=== PATIENT | male | born 1960 | race Caucasian/White ===

== ENCOUNTER 2016-05-22 11:39 | Observation (INO) | payer OTHER ==
[~2016-05-22] VITALS: Ht 182.9 cm; Wt 82.8 kg
[2016-05-22] VITALS (12 sets, daily range): BP systolic 131–144; BP diastolic 78–91; PULSE 92–119; RESP 18–35; O2SAT 89–100
[~2016-05-22 11:39] MED LIST: BENA20TA PO; VENL75TA3 PO; ZIT250 PO
[2016-05-22] MEDS ORDERED: Albuterol-Ipratropium 3 mL Inhalation Solution ONE (11:52)
--- NOTE | 2016-05-22 12:01 | ED.REPORT ---
HPI-Dyspnea / Wheezing Date of Service May 22, 2016 ED Provider: Geovany Ho MD The patient is a 56 year old male with history of asthma who was brought to the emergency department by EMS for shortness of breath that began 2 days ago. His symptoms have worsened since onset. He complains of difficulty breathing and anxiety. He tried nebulizers at home with no improvement. Medics administered epinephrine, Solu-Medrol, DuoNeb, and albuterol with no relief. Nursing Notes Stated Complaint: ASTHMA Nursing Notes Reviewed: Yes Allergies: Coded Allergies: No Known Allergies (Unverified , 01/20/16) Scheduled Albuterol Sulfate (Ventolin HFA Inhaler) 200 Puff/18 Gm Inhaler 2 PUFFS INHALATION QID Atorvastatin Calcium (Atorvastatin Calcium) 80 Mg Tablet 80 MG PO HS Dextroamphetamine/Amphetamine ER (Adderall XR) 20 Mg Capsule 40 MG PO QAM Quetiapine Fumarate (Quetiapine Fumarate) 300 Mg Tablet 300 MG PO DAILY Venlafaxine ER (Venlafaxine ER) 37.5 Mg Cap.er.24h 37.5 MG PO DAILY Scheduled PRN Gabapentin (Gabapentin) 600 Mg Tablet 600 MG PO BID PRN PRN For Pain General Time Seen by MD: 11:54 Chief Complaint Shortness of breath Hx Obtained From: Patient, EMS Arrived By: Ambulance Sudden in Onset?: Yes Onset Occurred: 2 days ago Symptom Duration: Since onset Location: : None Severity: Current: No pain currently Severity: Maximum: No pain Recent Healthcare: No recent hospitalization Similar Sx Previous: Yes Past Medical History Past Medical History Reports: Asthma Past Surgical History None reported. Smoking History Unknown if Ever Smoker Social History Other Social History: Local resident Ambulatory Status Independent Review of Systems Respiratory: Reports: Shortness of breath Complete sys rev & neg: except as marked. Psychiatric: Reports: Anxiety Physical Exam Initial Vital Signs Vital Signs (First) Date Time Temp Pulse Resp B/P Pulse Ox O2 Delivery O2 Flow Rate FiO2 05/22/16 12:01 34.0 119 35 144/78 89 Room Air Initial VS: Reviewed Head / Eyes: Atraumatic, Normocephalic, PERRL ENT: Mucous membranes moist, Conjunctiva normal, No scleral icterus Abdomen / GI: Soft, Non-tender, No guarding, No rebound, No distention Lymphatic: No lymphadenopathy Extremities: Vascular intact, Neuro intact, No swelling, No tenderness Skin: Warm, Dry, No cyanosis Neurologic: Alert, Oriented, Nonfocal Psychiatric: Mood/affect normal, Behavior normal, Normal thought content General/Constitutional: Awake, Alert Behavior: Positive: Anxious Neck: Atraumatic, Supple, No meningismus, Full range of motion, No swelling, Non-tender, No masses Diminished Breath Sounds: Positive: Decreased bilateral Wheezing / Retractions: Positive: Wheeze insp/exp diffuse Cardiovascular: Heart rate NL, Regular rhythm, Heart sounds NL, No gallop, No murmurs, No rubs, Peripheral circulation NL Interpretation & Diagnostics Lab Results Interpretation Result Diagram: 05/22/16 1355 05/22/16 1355 Test 05/22/16 13:55 White Blood Count 14.2th/mm3 (3.8-10.1) Red Blood Count 5.38mil/mm3 (4.40-5.80) Hemoglobin 15.8g/dL (13.8-17.2) Hematocrit 47.6% (41.0-50.0) Mean Corpuscular Volume 88.5fL (81-100) Mean Corpuscular Hemoglobin 29.4pg (27.0-35.0) Mean Corpuscular Hemoglobin Concent 33.2% (32.0-37.0) Red Cell Distribution Width 14.5% (12.3-15.4) Platelet Count 228bil/L (150-400) Neutrophils (%) (Auto) 93.1% (40-74) Lymphocytes (%) (Auto) 4.1% (14-46) Monocytes (%) (Auto) 2.1% (4-12) Eosinophils (%) (Auto) 0.3% (0-5) Basophils (%) (Auto) 0.1% (0-3) Sodium Level 140mEq/L (134-144) Potassium Level 4.6mEq/L (3.5-5.2) Chloride Level 102mEq/L (97-108) Carbon Dioxide Level 22mmol/L (18-29) Blood Urea Nitrogen 24mg/dL (6-24) Creatinine 1.10mg/dL (0.76-1.27) Estimat Glomerular Filtration Rate 74mL/min (>59) Glucose Level 164mg/dL (60-99) Calcium Level 8.7mg/dL (8.5-10.1) Magnesium Level 3.0mg/dL (1.6-2.6) Total Bilirubin 0.3mg/dL (0.0-1.2) Aspartate Amino Transf (AST/SGOT) 25U/L (0-50) Alanine Aminotransferase (ALT/SGPT) 22U/L (0-44) Alkaline Phosphatase 83U/L (25-150) Troponin T < 0.010ug/L (0.0-0.011) Pro-B-Type Natriuretic Peptide 28.93pg/mL (0-210) Total Protein 6.7g/dL (6.4-8.4) Albumin 4.3g/dL (3.4-5.0) Hold Quevedo Top Tube Received (Received) ECG Interpretation ECG Interpretation: Sinus tachycardia with a rate of 111 Abnormal R wave progression, early transition Inferior infarct, old Time: 12:31 Interpreted by: ED physician X-Ray Chest Interpretation Chest Xray Interpretation: IMPRESSION: No acute cardiopulmonary disease. Dictated by: Gayatri Denny M.D. on 05/22/2016 at 12:28 Interpretation / Wet Read by: Interpret - Radiologist Re-Eval/Medical Decision Med Decision/Clinical Course Upon arrival this gentleman is in extreme distress with sweat pouring off of him tripoding and unable to speak more than one word at a time. He had received epinephrine 0.3 mg of 1-1000 subcutaneous and Solu-Medrol and albuterol prior to arrival and he stated that he was feeling no better. We added on 10 additional milligrams of albuterol along with magnesium IV 2 g. And 1 mg of lorazepam. After a couple of hours he was much improved but still quite coarse breath sounds. Source of Hx: Old records, EMS Re-Evaluation/Progress #1: Time of Eval: 12:00 Re-Evaluation/Progress Note: The patient is feeling better. Re-Evaluation/Progress #2: Time of Eval: 12:08 Re-Evaluation/Progress Note: The patient is doing much better. He is sitting back in bed comfortably. Re-Evaluation/Progress #3: Time of Eval: 12:17 Re-Evaluation/Progress Note: The patient is stable. Re-Evaluation/Progress #4: Time of Eval: 14:07 Re-Evaluation/Progress Note: Rechecked the patient. He feels that if he is discharged home he will be right back. Will contact hospitalist for admission. Consultation : Referral / Consult Name: Alex Rivas MD Consulted With: Hospitalist Requested Call at: 14:08 Call Returned at: 14:13 Sieve Repairer: Will see patient, Agrees with eval, Agrees with plan, Accepts admit Counseled Regarding: Diagnosis, Lab results, Need for admission Discharge & Departure Impression: Primary Impression: Asthma exacerbation Disposition: ADMITTED TO HOSPITAL Discharge Condition All VS Reviewed: Yes Condition: Stable Referrals: Tyrel Munguia MD (PCP) Crit Care Except Billable Proc Time Spent: 30-74 minutes Services Performed: Patient management by me, Time spent at bedside, Reviewing test results, Reviewing imaging, Discussing patient care, Documentation in record Scribe Attestation Portions of this note were transcribed by Conhcita Aldridge. I, Dr. Ho personally performed the history, physical exam and medical decision-making; I reviewed and confirmed the accuracy of the information in the transcribed note. Signed by: Jonas Shaikh, 05/22/2016 at 1420. copies to: Tyrel Munguia MD, Kirk H MD May 22, 2016 12:01 Conchita Aldridge May 22, 2016 12:05
[2016-05-22] MEDS ORDERED: Albuterol 2.5 mg/3 mL Inhalation Solution NEB ONE (12:05)
[2016-05-22] MEDS ORDERED: Magnesium Sulf 2 Gm/50mL Water 2 GM in IV Premix 1 EACH IV ONE (12:05)
--- NOTE | 2016-05-22 12:30 | DRSVH ---
PROCEDURE: X-RAY CHEST ONE VIEW, PORTABLE ([id number]) INDICATIONS: wheezing TECHNIQUE: One view of the chest was acquired. COMPARISON: [facility], CR, XR CHEST 1VW (PORTABLE), 01/20/2016, 14:20. FINDINGS: Surgical changes and devices: None. Lungs and pleura: No pleural effusions or pneumothorax. Lungs are clear. Mediastinum: Mediastinal contours appear normal. Heart size is normal. Bones and chest wall: No suspicious bony lesions. Overlying soft tissues appear unremarkable. Old anterior first rib fracture or large osteochondral osteophytes are noted. IMPRESSION: No acute cardiopulmonary disease. Dictated by: Gayatri Denny M.D. on 05/22/2016 at 12:28 Approved by: Gayatri Denny M.D. on 05/22/2016 at 12:29
[2016-05-22] MEDS ORDERED: ALBU18HF INHALATION (13:33)
[2016-05-22] MEDS ORDERED: VENL-57 PO (13:33)
[2016-05-22] MEDS ORDERED: AMPH20CA5 PO (13:33)
[2016-05-22] MEDS ORDERED: QUET300T44 PO (13:33)
[2016-05-22] MEDS ORDERED: GABA600T2 PO (13:35)
[2016-05-22] MEDS ORDERED: ATOR80TA77 PO (13:35)
[2016-05-22 14:12] LABS: BASOPHILS % (AUTO) 0.1 % (0-3); EOSINOPHILS % (AUTO) 0.3 % (0-5); MONOCYTES % (AUTO) 2.1 % (4-12); Mean Corpuscular Hemoglobin 29.4 pg (27.0-35.0); Mean Corpuscular Volume 88.5 fL (81-100); NEUTROPHILS % (AUTO) 93.1 % (40-74); Platelet Count 228 bil/L (150-400)
[2016-05-22 14:43] LABS: TROPONIN T < 0.010 ug/L (0.0-0.011)
[2016-05-22] MEDS ORDERED: Alum-Mag Hydrox-Simeth 30 mL Suspension PO PRN (14:45)
[2016-05-22] MEDS: MethylprednisoLONE Sodium Succinate 62.5 mg/mL 2 mL Inj IVPUSH SCH ×2 (14:45→21:17)
[2016-05-22] MEDS ORDERED: HYDROcodone-APAP 5-325 mg Tablet PO PRN (14:45)
[2016-05-22] MEDS ORDERED: Polyethylene Glycol (PEG) 17 Gm Powder PO PRN (14:45)
[2016-05-22] MEDS ORDERED: Albuterol 2.5 mg/3 mL Inhalation Solution NEB SCH ×2 (14:55→16:30)
--- NOTE | 2016-05-22 15:39 | PCM.HPMED ---
Subjective Date of Service May 22, 2016 Primary Provider: Admitting Physician: Alex Rivas MD Primary Care Physician: Tyrel Munguia MD Attending Physician: Alex Rivas MD Chief Complaint: Shortness of Breath History of Present Illness: Marc is a 56-year-old male smoker with a history of asthma who was brought to the ED by EMS for shortness of breath that began approximately 2-3 days ago. He notes that he began getting increasingly short of breath about 3 days ago, so he used his albuterol as frequently as possible. He reports that cold air and cigarettes smoke triggers his asthma. He reports that despite the frequent usage of his inhaler, he was still very short of breath, especially with exertion. As a result he laid in bed for 2 days, waiting for his shortness of breath to improve. He did notice a cough that was not productive, but denies any fevers, chest pain, rash, or URI symptoms. He denies any recent illnesses and denies any recent oral steroid usage. He also has anxiety at baseline, so when his breathing continued to worsen, this exacerbated his anxiety, making it further difficult to breathe. Prior to this episode patient reports that he uses his albuterol inhaler at least 4-5 times daily to help with his shortness of breath. On route to the ED medics did administer epinephrine, Solu-Medrol, DuoNeb, and albuterol, but had little relief. In the ED he was noted to be tachycardic, tachypneic, with an O2 saturation of 89% on room air. He received 10 mg of albuterol nebulized, 2 duonebs, 2 g of mag sulfate, and 1 mg of Ativan. His tachypnea did improve and his O2 saturations were 92% on 3-4 L of oxygen by nasal cannula. He had a benign chest x-ray, and an EKG that showed abnormal early R-wave progression which was unchanged from an EKG year ago Review of Systems: 12 point review of systems negative except as stated in history of present illness Allergies Coded Allergies: No Known Allergies (Unverified , 01/20/16) Home Medications Albuterol inhaler Venlafaxine Statin Adderall PMH Persistent Asthma Hyperlipidemia Anxiety Reports ADHD Surgical History Reports bilateral shoulder surgeries Right knee surgery Family History reports mother's side of family had "bad hearts" Report father's side of family had diabetes Social History Hx Alcohol Use: No Hx Substance Use: No Hx Tobacco Use: Yes Smoking Status: Current Every Day Smoker (about half pack per day since 21 years old) Living Arrangement: with Friends/Roommate Exam Vital Signs Vital Sign - Last Date Time Temp Pulse Resp B/P Pulse Ox O2 Delivery O2 Flow Rate FiO2 05/22/16 12:01 34.0 119 35 144/78 89 Room Air Exam General: Well-developed male who appears in moderate respiratory distress while supine, speaking short sentences HEENT:NC/AT, PERRLA, sclera anicteric, oropharynx nonerythematous, mucosa moist and pink Neck: Soft, nontender, trachea midline, no JVD noted was supine CV: Regular rate and rhythm with soft systolic murmur noted, peripheral pulses intact and equal, mild capillary refill delay Respiratory: Diffuse bilateral respiratory and expiratory wheezing and rhonchi and crackles. Very coarse breath sounds, moderately increased respiratory effort, mild scalene and scm muscle usage Abdomen: Soft, nontender, obese, normoactive bowel sounds present MSK: Muscle strength grossly intact and equal, no tender joints Neuro: Alert and oriented 3, no focal weakness, patellar DTRs 2+ and equal Skin: Warm, dry, intact Extremities: No clubbing, cyanosis, edema noted Psychiatric: Appropriate mood and affect Lab and Diagnostics Result Diagram: 05/22/16 1355 05/22/16 1355 X-Rays, CTs and MRIs Portable chest x-ray: No acute cardiopulmonary disease noted Assessment & Plan 56-year-old male smoker with a history of asthma who was brought to the ED by EMS for shortness of breath that began approximately 2-3 days ago. #Acute exacerbation of asthma, present on admission This is likely a severe exacerbation of patient's persistent asthma. This is likely triggered by his tobacco usage. Besides the elevated white count on admission, he does not exhibit any other infectious signs or symptoms. Will obtain a pro-calcitonin to further evaluate. Perhaps a 2 view chest x-ray when his respiratory status is improved would be beneficial. Since patient continues to be in respiratory distress and hypoxic despite aggressive ED management, will plan to treat aggressively as inpatient with: IV Solu-Medrol 125 mg IV Q6, albuterol inhalers Q2h, DuoNeb inhalers Q4h, and Montelukast 10mg PO HS. Will plan to titrate off IV Solu-Medrol and change to oral prednisone tomorrow if respiratory status improves. We will continue to monitor respiratory status closely. #Hypoxic respiratory failure, POA Patient was saturating in the high 80s upon admission, which did not improve much after treatment. Currently requiring 3-4 L of oxygen by NC to maintain saturations above 92% We will plan to obtain an ABG for further evaluation of respiratory status Continue to keep saturations above 92% We will place on telemetry for CV monitoring Further management as above #Anxiety disorder,POA We will continue patient's home Effexor #Hyperlipidemia, POA We will continue patient's home statin #History of ADHD, POA We will continue patient's home Adderall #Tobacco dependence, POA Encouraged patient to quit for his health Nicotine patch when necessary Tylenol prn fever/pain Zofran prn nausea CODE STATUS: Full resuscitation Admission status: Patient is admitted to observation status due to risk of adverse events and his medical complexity Pain Evaluation: Adequate Pain Control VTE Prophylaxis: Sub-Q Heparin (Unfractionated) Resuscitation Status: CPR: Attempt Resuscitation Attending Statement The patient was seen and examined together with Dr. Nathan on 05/22/2016 and I agree with the history, exam and plan as outlined in the note above. Rigo Nathan DO May 22, 2016 15:39 Alex Rivas MD May 23, 2016 09:16
[2016-05-22] MEDS: Heparin 5,000 Unit/mL Inj SUBQ SCH (16:30)
--- NOTE | 2016-05-22 16:37 | ABG ---
DateTimeAnalyzed 16:33:00 -_ pH ____7.416 - 7.350 7.450 pCO2 ___35.2__ -mmHg 35.0 45.0 pO2 ___58.8__ -mmHg 70.0 100 HCO3- ___22.2__ -mmol/L 22.0 26.0 ABE ___-1.2__ -mmol/L -2.0 2.0 tHb ___15.8__ -g/dL 12.0 18.0 O2Hb ___88.9__ -% 95.0 COHb ____1.2__ -% 1.5 MetHb ____0.8__ -% 0.4 1.5 sO2 ___90.7__ -% 25.0 FIO2 ___21.0__ -% Drawn By lw - Date/Time Notified____ 16:37:00 -_ Oxygen Device 1 RA - Notified By lw - Notified Whom ___Dr. Nathan - B 753 -mmHg tO2 ___19.7__ -Vol% Joey test _Positive -
[2016-05-22] MEDS: Albuterol-Ipratropium 3 mL Inhalation Solution NEB SCH ×3 (16:55→23:36)
--- NOTE | 2016-05-22 17:31 | NUR ---
Admission Admit to room 3011 from ER via dara. RA sats 89%, placed on 2L O2 via NC with sats mid 90s%. Very SOB and audible wheezes with ambulating to BR and forgetful of lines requiring SBA. Fluids infusing NS@100 from ER. Urine stephen, using urinal. Reporting pain 2/10 and declining interventions at this point as well as nicotine patch. Admission assessments and med rec completed in ER. Pt oriented to room and call light. RT notified or arrival to unit.
[2016-05-22] MEDS: Albuterol 2.5 mg/3 mL Inhalation Solution NEB SCH ×2 (18:30→21:46)
[2016-05-23] VITALS (18 sets, daily range): BP systolic 119–148; BP diastolic 69–88; PULSE 95–120; RESP 18–28; O2SAT 87–98
[2016-05-23] MEDS: Heparin 5,000 Unit/mL Inj SUBQ SCH ×3 (00:30→15:52)
[2016-05-23] MEDS: Albuterol 2.5 mg/3 mL Inhalation Solution NEB SCH ×3 (02:05→11:53)
[2016-05-23] MEDS: MethylprednisoLONE Sodium Succinate 62.5 mg/mL 2 mL Inj IVPUSH SCH ×3 (03:40→15:51)
[2016-05-23] MEDS: Albuterol-Ipratropium 3 mL Inhalation Solution NEB SCH ×6 (04:09→23:43)
[2016-05-23 06:22] LABS: BASOPHILS % (AUTO) 0.1 % (0-3); EOSINOPHILS % (AUTO) 0 % (0-5); MONOCYTES % (AUTO) 1.5 % (4-12); Mean Corpuscular Volume 87.9 fL (81-100); NEUTROPHILS % (AUTO) 93.4 % (40-74); Platelet Count 242 bil/L (150-400)
[2016-05-23 07:09] LABS: Magnesium 2.1 mg/dL (1.6-2.6)
[2016-05-23] MEDS: Venlafaxine XR 37.5 mg ER24 Capsule PO SCH (08:50)
[2016-05-23] MEDS: Amphetamines (Mixed) XR 10 mg ER24 Capsule PO SCH (09:47)
--- NOTE | 2016-05-23 10:52 | NUR ---
Social Work: Screening Data: Pt is a 56 y/o male admitted for asthma exacerbated. Pt's PCP is Dr Munguia, pt's insurance is [employer]. EMR reviewed. Readmit score is 3. No d/c planning needs anticipated at this time. TOOTH CUTTER PINION will continue to follow if needs arise. Assessment: Pt who is independent at baseline. Plan: Pt will d/c home via POV when medically stable. No d/c planning needs anticipated at this time. TOOTH CUTTER PINION will continue to follow if needs arise. ENMANUEL Moise
[2016-05-23] MEDS ORDERED: Albuterol 2.5 mg/3 mL Inhalation Solution NEB PRN (14:30)
--- NOTE | 2016-05-23 14:39 | PCM.PNMED ---
Subjective Date of Service May 23, 2016 Subjective Marc Levin is a 56-year-old male smoker with a history of asthma who was brought to the ED by EMS for shortness of breath that began approximately 2-3 days ago. Now under treatment for asthma exacerbation. Hospital day #2. Overnight: No acute events. Today: The patient is still feeling short of breath with exertion. While at rest he states his breathing is fairly normal but any exertion including sitting up. He has not been compliant with wearing his O2 mask. He denies any cough, fever, chills, nausea, vomiting or diarrhea. The remainder of the review of systems is negative except as noted above. Exam Vital Signs Vital Sign - Last Date Time Temp Pulse Resp B/P Pulse Ox O2 Delivery O2 Flow Rate FiO2 05/23/16 13:05 36.6 118 18 131/79 92 Room Air 05/23/16 10:17 3.00 Intake and Output 05/22/16 05/22/16 05/23/16 Cumulative From/Thru 15:00 23:00 07:00 05/22/16 12:01 - 05/23/16 06:25 Intake Total 50 ml 375 ml 425 ml Output Total 400 ml 400 ml Balance 50 ml -25 ml 25 ml Intake Oral 375 ml 375 ml IV Total 50 ml 50 ml Output Urine Total 400 ml 400 ml # Bowel Movements 0 0 Exam General: Well-developed male who appears in no acute respiratory distress. Laying comfortably in bed. HEENT:NC/AT, PERRLA, sclera anicteric, oropharynx nonerythematous, mucosa moist and pink Neck: Soft, nontender, trachea midline, no JVD noted was supine CV: Regular rate and rhythm with soft systolic murmur noted, peripheral pulses intact and equal, mild capillary refill delay Respiratory: Diffuse bilateral respiratory and expiratory wheezing and rhonchi and crackles. Very coarse breath sounds, moderately increased respiratory effort, mild scalene and scm muscle usage Abdomen: Soft, nontender, obese, normoactive bowel sounds present MSK: Muscle strength grossly intact and equal, no tender joints Neuro: Alert and oriented 3, no focal weakness, patellar DTRs 2+ and equal Skin: Warm, dry, intact Extremities: No clubbing, cyanosis, edema noted Psychiatric: Appropriate mood and affect IVs and Medications Medications Reviewed: Medications were reviewed in detail Lab and Diagnostics Result Diagram: 05/23/16 0540 05/23/16 0540 X-Rays, CTs and MRIs X-RAY CHEST ONE VIEW, PORTABLE IMPRESSION: No acute cardiopulmonary disease. Dictated by: Gayatri Denny M.D. on 05/22/2016 at 12:28 Additional Diagnostics DateTimeAnalyzed 16:33:00 -_ pH ____7.416 - 7.350 7.450 pCO2 ___35.2__ -mmHg 35.0 45.0 pO2 ___58.8__ -mmHg 70.0 100 HCO3- ___22.2__ -mmol/L 22.0 26.0 Assessment & Plan Marc Levin is a 56-year-old male smoker with a history of asthma who was brought to the ED by EMS for shortness of breath that began approximately 2-3 days ago. Now under treatment for asthma exacerbation. Hospital day #2. 1. Acute exacerbation of asthma, present on admission -This is likely a severe exacerbation of patient's persistent asthma. This is likely triggered by his tobacco usage. -Besides the elevated white count on admission, he does not exhibit any other infectious signs or symptoms. Will obtain a pro-calcitonin to further evaluate. Perhaps a 2 view chest x-ray when his respiratory status is improved would be beneficial. -Since patient continues to be in respiratory distress and hypoxic despite aggressive ED management, will plan to treat aggressively as inpatient with: -IV Solu-Medrol 125 mg IV Q6 titrated down to 60 mg IV Q8 -Albuterol inhalers Q2h PRN, DuoNeb inhalers Q4H scheduled while awake, and Montelukast 10mg PO HS. -We will continue to monitor respiratory status closely. 2. Hypoxic respiratory failure, present on admission -Patient was saturating in the high 80s upon admission, which did not improve much after treatment. -ABG showing paO2 of 58.8 -Currently requiring 3 L of oxygen by Oxymask to maintain saturations above 92% -Continue to keep saturations above 92% -We will place on telemetry for CV monitoring -Further management as above 3. Anxiety disorder, present on admission -We will continue patient's home Effexor 4. Hyperlipidemia, present on admission -We will continue patient's home statin 5. History of ADHD, present on admission -We will continue patient's home Adderall 6. Tobacco dependence, present on admission -Encouraged patient to quit for his health -Nicotine patch when necessary Tylenol prn fever/pain Zofran prn nausea CODE STATUS: Full resuscitation Dispo: Anticipate patient will be in the hospital for a couple more days as his asthma exacerbation resolves. VTE Prophylaxis: Sub-Q Heparin (Unfractionated) VTE Mechanical Devices: Intermittant Pneumatic CD Resuscitation Status: CPR: Attempt Resuscitation Attending Statement The patient was seen and examined together with Dr. Duarte on 05/23/2016 and I agree with the history, exam and plan as outlined in the note above. Macy Duarte DO May 23, 2016 13:22 Alex Rivas MD May 24, 2016 11:33
--- NOTE | 2016-05-23 17:03 | NUR ---
Telemetry: Notified by cdl service technician patient HR elevated to 120s. Has been 100-110s. Patient laying in bed, receiving nebulizer treatment at that time. Asymptomatic. Blue team Sr Resident notified. No new orders received. On reassessment, patient HR decreased back to 100-110s per cdl service technician.
[2016-05-24] MEDS: Heparin 5,000 Unit/mL Inj SUBQ SCH ×2 (00:30→08:30)
[2016-05-24] MEDS: MethylprednisoLONE Sodium Succinate 62.5 mg/mL 2 mL Inj IVPUSH SCH (00:33)
[2016-05-24 01:55] VITALS: BP 134/87; PULSE 102; RESP 22; O2SAT 93
[2016-05-24 04:58] VITALS: PULSE 120; RESP 20; O2SAT 94
[2016-05-24] MEDS: Albuterol-Ipratropium 3 mL Inhalation Solution NEB SCH ×2 (04:58→09:26)
[2016-05-24 06:33] LABS: BASOPHILS % (AUTO) 0 % (0-3); EOSINOPHILS % (AUTO) 0 % (0-5); MONOCYTES % (AUTO) 2.7 % (4-12); Mean Corpuscular Hemoglobin 29.9 pg (27.0-35.0); Mean Corpuscular Volume 87.9 fL (81-100); Platelet Count 308 bil/L (150-400)
[2016-05-24 06:43] VITALS: BP 131/85; PULSE 97; RESP 22; O2SAT 98
[2016-05-24 08:00] VITALS: PULSE 108
[2016-05-24] MEDS ORDERED: MethylprednisoLONE Sodium Succinate 40 mg/mL Inj IVPUSH SCH (08:30)
[2016-05-24] MEDS: Amphetamines (Mixed) XR 10 mg ER24 Capsule PO SCH (08:30)
[2016-05-24] MEDS: Venlafaxine XR 37.5 mg ER24 Capsule PO SCH (08:37)
[2016-05-24 09:15] VITALS: PULSE 120; RESP 20; O2SAT 94
--- NOTE | 2016-05-24 09:43 | DRSVH ---
PROCEDURE: X-RAY CHEST, TWO VIEWS ([id number]) INDICATIONS: SHORTNESS OF BREATH TECHNIQUE: 2 views of the chest were acquired. COMPARISON: None. FINDINGS: Surgical changes and devices: None. Lungs and pleura: No pleural effusions or pneumothorax. Lungs are clear. Mediastinum: Mediastinal contours are normal. Heart size is normal. Bones and chest wall: No suspicious bony abnormalities. Soft tissues appear unremarkable. IMPRESSION: No acute cardiopulmonary disease. Dictated by: [facility] Interpreted: Davida Loaiza MD on 05/24/2016 at 9:42 Transcribed by: KAYLEE on 05/24/2016 at 9:43 Approved by: Davida Loaiza MD, PhD on 05/24/2016 at 17:07
[2016-05-24] MEDS ORDERED: ALBU18HF INHALATION (10:21)
[2016-05-24] MEDS ORDERED: PRE20 PO (10:21)
--- NOTE | 2016-05-24 10:26 | PCM.DIMED ---
Rigo Nathan DO 05/24/16 1026: Discharge Instructions Date of Service May 24, 2016 Dates of Hospitalization May 22, 2016 at 15:21 Discharge Diagnosis Discharge Diagnosis Acute exacerbation of asthma, improved Anxiety disorder, present on admission Hyperlipidemia, present on admission History of ADHD Tobacco dependence, Medication Instructions Continue taking your medications as prescribed. Please stop smoking Diet No restrictions Activity No restrictions Call your provider Fever or Chills, Shortness of breath, Bleeding, Chest pain, Vomitting, Excessive diarrhea, Weakness (unilateral) Patient Instructions Please follow up with your primary care doctor tomorrow Follow-up Provider: Tyrel Munguia MD Follow-up with PCP in: 1 week Alex Rivas MD 05/24/16 1133: Rigo Nathan DO May 24, 2016 10:26 Alex Rivas MD May 24, 2016 11:33
--- NOTE | 2016-05-24 10:34 | NUR ---
Social Work: Informed pt left AMA TERMINAL OPERATIONS SUPERVISOR informed pt left AMA. Pt had no d/c planning needs. ENMANUEL Moise
--- NOTE | 2016-05-24 10:36 | NUR ---
AMA Pt insisting to go home this morning, up ambulating in the hallway without any difficulty. Pt signed AMA form and discharged home with all belongings.
--- NOTE | 2016-05-24 12:08 | NUR ---
Belongings Before leaving, pt reported that he had brought bottles of medications with him and requested them back. No meds found in drawer or pharmacy. Pt left AMA. After pt left, belongings bag found in closet containing pill bottles and clothing. Called pt and left voicemail.
--- NOTE | 2016-05-24 16:52 | PCM.DC.MED ---
Discharge Summary Date of Service May 24, 2016 Dates of Hospitalization Date of Hospital Admission May 22, 2016 at 15:21 Date of Discharge: May 24, 2016 Providers: Admitting Physician: Alex Rivas MD Primary Care Physician: Tyrel Munguia MD Attending Physician: Alex Rivas MD Diagnosis at Time of Discharge Diagnosis at Time of Discharge Left against medical advice Acute exacerbation of asthma, improved Anxiety disorder, present on admission Hyperlipidemia, present on admission History of ADHD Tobacco dependence, Procedures XRay, CTs & MRIs X-RAY CHEST ONE VIEW, PORTABLE IMPRESSION: No acute cardiopulmonary disease. Dictated by: Gayatri Denny M.D. on 05/22/2016 at 12:28 Other Diagnostics DateTimeAnalyzed 16:33:00 -_ pH ____7.416 - 7.350 7.450 pCO2 ___35.2__ -mmHg 35.0 45.0 pO2 ___58.8__ -mmHg 70.0 100 HCO3- ___22.2__ -mmol/L 22.0 26.0 Brief History Marc is a 56-year-old male smoker with a history of asthma who was brought to the ED by EMS for shortness of breath that began approximately 2-3 days ago. He notes that he began getting increasingly short of breath about 3 days ago, so he used his albuterol as frequently as possible. He reports that cold air and cigarettes smoke triggers his asthma. He reports that despite the frequent usage of his inhaler, he was still very short of breath, especially with exertion. As a result he laid in bed for 2 days, waiting for his shortness of breath to improve. He did notice a cough that was not productive, but denies any fevers, chest pain, rash, or URI symptoms. He denies any recent illnesses and denies any recent oral steroid usage. He also has anxiety at baseline, so when his breathing continued to worsen, this exacerbated his anxiety, making it further difficult to breathe. Prior to this episode patient reports that he uses his albuterol inhaler at least 4-5 times daily to help with his shortness of breath. On route to the ED medics did administer epinephrine, Solu-Medrol, DuoNeb, and albuterol, but had little relief. In the ED he was noted to be tachycardic, tachypneic, with an O2 saturation of 89% on room air. He received 10 mg of albuterol nebulized, 2 duonebs, 2 g of mag sulfate, and 1 mg of Ativan. His tachypnea did improve and his O2 saturations were 92% on 3-4 L of oxygen by nasal cannula. He had a benign chest x-ray, and an EKG that showed abnormal early R-wave progression which was unchanged from an EKG year ago Hospital Course Marc Levin is a 56-year-old male smoker with a history of asthma who was brought to the ED by EMS for shortness of breath that began approximately 2-3 days ago. Now under treatment for asthma exacerbation. Hospital day #2. Left against medical advice. Was given script for Prednisone 40mg PO x 5 days and Albuterol HFA inhaler. Also recommended to stop smoking. 1. Acute exacerbation of asthma, present on admission -This is likely a severe exacerbation of patient's persistent asthma. This is likely triggered by his tobacco usage. -Besides the elevated white count on admission, he does not exhibit any other infectious signs or symptoms. Will obtain a pro-calcitonin to further evaluate. Perhaps a 2 view chest x-ray when his respiratory status is improved would be beneficial. -Since patient continues to be in respiratory distress and hypoxic despite aggressive ED management, will plan to treat aggressively as inpatient with: -IV Solu-Medrol 125 mg IV Q6 titrated down to 60 mg IV Q8 -Albuterol inhalers Q2h PRN, DuoNeb inhalers Q4H scheduled while awake, and Montelukast 10mg PO HS. -We will continue to monitor respiratory status closely. 2. Hypoxic respiratory failure, present on admission -Patient was saturating in the high 80s upon admission, which did not improve much after treatment. -ABG showing paO2 of 58.8 -Currently requiring 3 L of oxygen by Oxymask to maintain saturations above 92% -Continue to keep saturations above 92% -We will place on telemetry for CV monitoring -Further management as above 3. Anxiety disorder, present on admission -We will continue patient's home Effexor 4. Hyperlipidemia, present on admission -We will continue patient's home statin 5. History of ADHD, present on admission -We will continue patient's home Adderall 6. Tobacco dependence, present on admission -Encouraged patient to quit for his health -Nicotine patch when necessary Tylenol prn fever/pain Zofran prn nausea CODE STATUS: Full resuscitation Dispo: Anticipate patient will be in the hospital for a couple more days as his asthma exacerbation resolves. Exam Vital Signs (Last) Date Time Temp Pulse Resp B/P Pulse Ox O2 Delivery O2 Flow Rate FiO2 05/24/16 09:15 120 20 94 Room Air 05/24/16 06:43 36.5 131/85 8.00 Exam Refused exam due to leaving AMA Test 05/22/16 13:55 05/23/16 05:40 05/24/16 06:02 Total Bilirubin 0.3mg/dL (0.0-1.2) Aspartate Amino Transf (AST/SGOT) 25U/L (0-50) Alanine Aminotransferase (ALT/SGPT) 22U/L (0-44) Alkaline Phosphatase 83U/L (25-150) Troponin T < 0.010ug/L (0.0-0.011) Pro-B-Type Natriuretic Peptide 28.93pg/mL (0-210) Total Protein 6.7g/dL (6.4-8.4) Albumin 4.3g/dL (3.4-5.0) Hold Quevedo Top Tube Received (Received) Magnesium Level 2.1mg/dL (1.6-2.6) White Blood Count 26.2th/mm3 (3.8-10.1) Red Blood Count 5.36mil/mm3 (4.40-5.80) Hemoglobin 16.0g/dL (13.8-17.2) Hematocrit 47.1% (41.0-50.0) Mean Corpuscular Volume 87.9fL (81-100) Mean Corpuscular Hemoglobin 29.9pg (27.0-35.0) Mean Corpuscular Hemoglobin Concent 34.0% (32.0-37.0) Red Cell Distribution Width 14.6% (12.3-15.4) Platelet Count 308bil/L (150-400) Neutrophils (%) (Auto) 93.0% (40-74) Lymphocytes (%) (Auto) 3.9% (14-46) Monocytes (%) (Auto) 2.7% (4-12) Eosinophils (%) (Auto) 0% (0-5) Basophils (%) (Auto) 0% (0-3) Sodium Level 140mEq/L (134-144) Potassium Level 4.6mEq/L (3.5-5.2) Chloride Level 102mEq/L (97-108) Carbon Dioxide Level 19mmol/L (18-29) Blood Urea Nitrogen 23mg/dL (6-24) Creatinine 0.85mg/dL (0.76-1.27) Estimat Glomerular Filtration Rate 99mL/min (>59) Glucose Level 151mg/dL (60-99) Calcium Level 10.1mg/dL (8.5-10.1) Procalcitonin 0.08ng/mL (0.00-0.08) Discharge Medications Discharge Medications Albuterol Sulfate (Ventolin HFA Inhaler) 200 Puff/18 Gm Inhaler 2 PUFFS INHALATION QID Prescribed by: LOUIS NATHAN DO Atorvastatin Calcium (Atorvastatin Calcium) 80 Mg Tablet 80 MG PO HS (Reported) Dextroamphetamine/Amphetamine ER (Adderall XR) 20 Mg Capsule 40 MG PO QAM ( Reported) Prednisone (PredniSONE) 20 Mg Tablet 40 MG PO DAILY Prescribed by: LOUIS NATHAN DO Quetiapine Fumarate (Quetiapine Fumarate) 300 Mg Tablet 300 MG PO DAILY ( Reported) Venlafaxine ER (Venlafaxine ER) 37.5 Mg Cap.er.24h 37.5 MG PO DAILY (Reported) As needed Gabapentin (Gabapentin) 600 Mg Tablet 600 MG PO BID PRN PRN For Pain (Reported) Additional med instructions Continue taking your medications as prescribed. Please stop smoking Followup Plan Disposition: Left AMA Discharge Diet: No restrictions Discharge Activity: No restrictions Patient Instructions Please follow up with your primary care doctor tomorrow Follow-up Provider: Tyrel Munguia MD Follow-up with PCP in: 1 week Attending Statement The patient was seen and examined together with Dr. Nathan on 05/24/2016 and I agree with the history, exam and plan as outlined in the note above. copies to: Tyrel Munguia MD, Hong D DO May 24, 2016 16:51 Alex Rivas MD May 25, 2016 11:47
== END 2016-05-24 10:30 | disposition left against medical advice (07) ==
LOC: EDBD 11:39 → SED 11:39 → EDUNIT# 11:39 → MPC 15:21
PROVIDERS: ADMIT Family Medicine; ATTEND Family Medicine
DX: J45.901 Unspecified asthma with (acute) exacerbation (principal); J80 Acute respiratory distress syndrome; F41.9 Anxiety disorder, unspecified; E78.5 Hyperlipidemia, unspecified; F90.9 Attention-deficit hyperactivity disorder, unspecified type; F17.210 Nicotine dependence, cigarettes, uncomplicated; Z53.21 Procedure and treatment not carried out due to patient leaving prior to being seen by health care provider
CPT/HCPCS: 36415; 71010; 71020; 80048; 80053; 83735; 83880; 84145; 84484; 85025; 93005; 94640; 94664; 96365; 96375; 96376; 99291; G0378; J2060; J2920; J2930; J7613; J7620

== ENCOUNTER 2016-05-25 15:43 | Inpatient (IN) | payer OTHER ==
[~2016-05-25] VITALS: Ht 182.9 cm; Wt 82.2 kg
[~2016-05-25 15:43] MED LIST changes: +ALBU18HF INHALATION; +AMPH20CA5 PO; +ATOR80TA77 PO; -BENA20TA PO; +GABA600T2 PO; +PRE20 PO; +QUET300T44 PO; +VENL-57 PO; -VENL75TA3 PO; -ZIT250 PO
[2016-05-25 15:50] VITALS: BP 158/87; PULSE 82; RESP 20; O2SAT 93
--- NOTE | 2016-05-25 15:53 | ED.REPORT ---
HPI-Dyspnea / Wheezing Date of Service May 25, 2016 ED Provider: Dr. Gamez Pt is a 56 y/o male w/ a hx of asthma, anxiety, everyday smoking, presenting to the ED c/o SOB onset today. The patient was recently admitted May 22- and left AMA for a severe asthma exacerbation which was thought to be triggered by smoking. At that time his O2 sats were in the high 80s and did not rise above 92 % with 3L supplemental oxygen and nebulizer treatments. He states he left AMA because he "felt weird" and "stunk" because he was not given a shower. He was diagnosed with asthma 5 years ago and has never required intubation. He has been taking prednisone for 3 days and using home inhalers as often as possible without relief. Pt denies fever, chills, change in smokers cough, N/V/D, abdominal pain. Nursing Notes Stated Complaint: DIFFICULTY BREATHING Chief Complaint: Respiratory Complaints Nursing Notes Reviewed: Yes Allergies: Coded Allergies: No Known Allergies (Unverified , 01/20/16) Scheduled Albuterol Sulfate (Ventolin HFA Inhaler) 200 Puff/18 Gm Inhaler 2 PUFFS INHALATION QID Atorvastatin Calcium (Atorvastatin Calcium) 80 Mg Tablet 80 MG PO HS Dextroamphetamine/Amphetamine ER (Adderall XR) 20 Mg Capsule 40 MG PO QAM Prednisone (PredniSONE) 20 Mg Tablet 40 MG PO DAILY Quetiapine Fumarate (Quetiapine Fumarate) 300 Mg Tablet 300 MG PO DAILY Venlafaxine ER (Venlafaxine ER) 37.5 Mg Cap.er.24h 37.5 MG PO DAILY Scheduled PRN Gabapentin (Gabapentin) 600 Mg Tablet 600 MG PO BID PRN PRN For Pain General Time Seen by MD: 15:53 Chief Complaint Shortness of breath Hx Obtained From: Patient Arrived By: Walk-in Sudden in Onset?: No Onset Occurred: 1 - 4 hours ago Symptom Duration: Since onset Severity: Current: No pain currently Severity: Maximum: No pain Recent Healthcare: Recent doctor visit, Recent hospitalization, Recent testing , Previous diagnosis, Prior workup Similar Sx Previous: Yes Past Medical History Past Medical History Asthma Depression Anxiety Hyperlipidemia Past Surgical History None reported. Smoking History Current Every Day Smoker Social History Drug Use: THC Other Social History: Local resident Ambulatory Status Independent Review of Systems Constitutional: Denies: Chills, Fever Respiratory: Reports: Dyspnea on exertion, Shortness of breath, Wheezing, Denies: Non-productive cough Cardiovascular: Denies: Chest pain, Dyspnea on exertion Complete sys rev & neg: except as marked. GI: Denies: Abdominal pain, Diarrhea, Nausea, Vomiting Physical Exam Initial Vital Signs Vital Signs (First) Date Time Temp Pulse Resp B/P Pulse Ox O2 Delivery O2 Flow Rate FiO2 05/25/16 15:50 36.6 82 20 158/87 93 Room Air 05/25/16 16:08 1.5 Initial VS: Reviewed, Vital signs abnormal Head / Eyes: Atraumatic, Normocephalic, PERRL ENT: Mucous membranes moist, Conjunctiva normal, No scleral icterus Abdomen / GI: Soft, Non-tender, No distention Extremities: Vascular intact, Neuro intact, No swelling, No tenderness Skin: Warm, Dry, No cyanosis Neurologic: Alert, Oriented, Nonfocal Psychiatric: Mood/affect normal, Behavior normal, Normal thought content General/Constitutional: Awake, Alert, Cooperative, Not toxic appearing Distress / Hydration: Positive: Distress moderate Neck: Atraumatic, Supple, No meningismus, Full range of motion Respiratory / Chest: Atraumatic, No rales, No rhonchi, No stridor, No chest tenderness, No chest wall deformity, No crepitus Resp Distress / Stridor: Positive: Resp distress moderate Inspiratory and expiratory wheezes 5 word sentences Increased work of breathing Cardiovascular: Heart rate NL, Regular rhythm, Heart sounds NL, No gallop, No murmurs, No rubs, Cap refill not delayed, Peripheral circulation NL Interpretation & Diagnostics Lab Results Interpretation Result Diagram: 05/25/16 1610 05/25/16 1610 Test 05/25/16 16:10 White Blood Count 16.8th/mm3 (3.8-10.1) Red Blood Count 5.40mil/mm3 (4.40-5.80) Hemoglobin 16.1g/dL (13.8-17.2) Hematocrit 47.4% (41.0-50.0) Mean Corpuscular Volume 87.8fL (81-100) Mean Corpuscular Hemoglobin 29.8pg (27.0-35.0) Mean Corpuscular Hemoglobin Concent 34.0% (32.0-37.0) Red Cell Distribution Width 14.4% (12.3-15.4) Platelet Count 298bil/L (150-400) Neutrophils (%) (Auto) 86.9% (40-74) Lymphocytes (%) (Auto) 7.4% (14-46) Monocytes (%) (Auto) 5.1% (4-12) Eosinophils (%) (Auto) 0.1% (0-5) Basophils (%) (Auto) 0.1% (0-3) Sodium Level 136mEq/L (134-144) Potassium Level 4.7mEq/L (3.5-5.2) Chloride Level 99mEq/L (97-108) Carbon Dioxide Level 21mmol/L (18-29) Blood Urea Nitrogen 23mg/dL (6-24) Creatinine 0.81mg/dL (0.76-1.27) Estimat Glomerular Filtration Rate 105mL/min (>59) Glucose Level 126mg/dL (60-99) Calcium Level 9.7mg/dL (8.5-10.1) Total Bilirubin 0.5mg/dL (0.0-1.2) Aspartate Amino Transf (AST/SGOT) 43U/L (0-50) Alanine Aminotransferase (ALT/SGPT) 33U/L (0-44) Alkaline Phosphatase 92U/L (25-150) Troponin T < 0.010ug/L (0.0-0.011) Pro-B-Type Natriuretic Peptide 225.4pg/mL (0-210) Total Protein 7.6g/dL (6.4-8.4) Albumin 4.4g/dL (3.4-5.0) Procalcitonin 0.04ng/mL (0.00-0.08) Hold Quevedo Top Tube Received (Received) ECG Interpretation Time: 16:23 Interpreted by: ED physician Normal ECG Interpretation: Normal ECG w/ rate of... (67), Normal rate, Normal sinus rhythm, No acute ischemic changes, Normal QRS, Normal axis, Normal intervals, Adequate tracing X-Ray Chest Interpretation Chest Xray Interpretation: IMPRESSION: No acute cardiopulmonary disease. Dictated by: Jay Martinez M.D. on 05/25/2016 at 17:28 Approved by: Jay Martinez M.D. on 05/25/2016 at 17:30 View: Portable, 1 view Interpretation / Wet Read by: Interpret - Radiologist Re-Eval/Medical Decision Med Decision/Clinical Course 56-year-old male with a history of asthma diagnosed 5 years ago, never intubated previously, presents after leaving [facility] during an admission for asthma exacerbation. He has been taking steroids for the past 3 days and continues to be very short of breath. He does not have a nebulizer at home but has been using his inhaler almost continuously without improvement. He cannot walk to the bathroom without becoming extremely short of breath. He left the hospital because he wanted to go home and take a shower. Despite not being hypoxic the patient does have significant chest tightness and increased work of breathing. He improved somewhat after magnesium, Solu-Medrol, and albuterol/DuoNeb treatment. He will be admitted for further treatment and evaluation. Respiratory swab PCR ordered Source of Hx: Old records Re-Evaluation/Progress #1: Time of Eval: 16:13 Re-Evaluation/Progress Note: Pt rechecked. Discussed likely possibility of admission. Will recheck. Re-Evaluation/Progress #2: Time of Eval: 17:39 Re-Evaluation/Progress Note: Pt rechecked. O2 sat 93% on RA. He is feeling better but remains short of breath. No increased work of breathing or respiratory distress. He is experiencing expiratory wheezing. Discussed discharge vs admission. He states that he does not want to be discharged because he will just end up back in the ED 2 hours later with severe SOB. He will be admitted. Consultation : Referral / Consult Name: Wu العراقي MD Consulted With: Hospitalist Call Returned at: 17:51 Organizational Effectiveness Director: Will see patient, Agrees with eval, Agrees with plan, Accepts admit Counseled Regarding: Diagnosis, Lab results, Need for admission Discharge & Departure Impression: Primary Impression: Asthma exacerbation Additional Impressions: Leukocytosis Leukocytosis type: unspecified Qualified Code: D72.829 - Elevated white blood cell count, unspecified Hyperglycemia Disposition: ADMITTED TO HOSPITAL Discharge Condition All VS Reviewed: Yes Condition: Stable Referrals: Tyrel Munguia MD (PCP) Geovany Ho MD (Family) Scribe Attestation Portions of this note were transcribed by Eduardo Sanchez. IDr. Gamez personally performed the history, physical exam and medical decision-making; I reviewed and confirmed the accuracy of the information in the transcribed note. Signed by Jonas Worthy, 05/25/16 - [id number] copies to: Geovany Ho MD; Tyrle Munguia MD, Gary R DO May 25, 2016 15:53 EDUARDO SANCHEZ May 25, 2016 15:59
[2016-05-25] MEDS ORDERED: Albuterol-Ipratropium 3 mL Inhalation Solution NEB ONE (15:55)
[2016-05-25] MEDS ORDERED: Magnesium Sulf 2 Gm/50mL Water 2 GM in IV Premix 1 EACH IV ONE (15:55)
[2016-05-25] MEDS ORDERED: Albuterol 2.5 mg/3 mL Inhalation Solution NEB ONE (15:55)
[2016-05-25] MEDS ORDERED: MethylprednisoLONE Sodium Succinate 62.5 mg/mL 2 mL Inj IVPUSH ONE (15:55)
[2016-05-25 16:08] VITALS: PULSE 72; RESP 16; O2SAT 95
[2016-05-25 16:49] LABS: BASOPHILS % (AUTO) 0.1 % (0-3); EOSINOPHILS % (AUTO) 0.1 % (0-5); MONOCYTES % (AUTO) 5.1 % (4-12); Mean Corpuscular Hemoglobin 29.8 pg (27.0-35.0); Mean Corpuscular Volume 87.8 fL (81-100); NEUTROPHILS % (AUTO) 86.9 % (40-74); Platelet Count 298 bil/L (150-400)
[2016-05-25 17:26] LABS: TROPONIN T < 0.010 ug/L (0.0-0.011)
--- NOTE | 2016-05-25 17:32 | DRSVH ---
PROCEDURE: X-RAY CHEST ONE VIEW, PORTABLE ([id number]) INDICATIONS: shortness of breath COMPARISON: [facility], CR, XR CHEST 2VW, 05/24/2016, 7:46. FINDINGS: Surgical changes and devices: None. Lungs and pleura: No pleural effusions or pneumothorax. Lungs are clear. Mediastinum: Mediastinal contours are normal. Heart size is normal. Bones and chest wall: No suspicious bony abnormalities. Soft tissues appear unremarkable. IMPRESSION: No acute cardiopulmonary disease. Dictated by: Jay Martinez M.D. on 05/25/2016 at 17:28 Approved by: Jay Martinez M.D. on 05/25/2016 at 17:30
[2016-05-25 18:14] VITALS: BP 157/86; PULSE 88; RESP 18; O2SAT 96
--- NOTE | 2016-05-25 18:36 | PCM.HPMED ---
Subjective Date of Service May 25, 2016 Primary Provider: Admitting Physician: Primary Care Physician: Tyrel Munguia MD Attending Physician: Chief Complaint: Wheezing short of breath HISTORY was OBTAINED FROM PATIENT / MEDITECH NOTES History of present illness 56-year-old maleleft AMA yesterday after asthma exacerbation admission, discharged with prednisone 40/albuterol inhaler, does not have nebulizers at home, did take prednisone, but could not walk to the bathroom without shortness of breath last night nor today therefore returned to ER. Patient was admitted 05/22/2016 with a three-day history of shortness of breath hypoxia despite using his albuterol inhaler, WBC 26, Concurrent anxiety history patient was administered montelukast in addition to steroid/nebs/O2.. Asthma is triggered by cigarettes and cold air, more frequent w/ taking up smoking again after brother's and cold weather. Associated productive cough clear phelgm per patient. no sore throat No fevers. In the ER inspiratory expiratory wheezes per provider, one word replies, vital signs stable 1.5 L nasal cannula status post albuterol DuoNeb Solu-Medrol magnesium, some comfort, does not want to leave ama Review of Systems - none of the following - F/C/sick contact / wt change/ [place] / lightheaded / dizziness / sob / cough / cp / n/v/diarrhea / bleeding/bruising / leg swelling / change in voiding / yeast infections / rash ambulates acid reflux + Home medications Albuterol and venlafaxine seroquel statin Adderall Past medical history asthma persistent, dyslipidemia, anxiety, ADHD, bilateral shoulder repairs, right knee repair Family History mother cardiac disease, father diabetes Social current smoker Exam on admission 2L NC NAD A and O x 3 mood affect WNL NC/AT no icterus no injected eyes EOMI PERRL /no pharyngeal lesions/ no oral lesions / hearing intact Supple neck bilateral wheeze bases equal chest rise / no accessory muscle use / speaks in full sentences / no rrw RRR S1 S2 / no mrg / 2+ radial pulses Soft nt nd + BS no hepatosplenomegaly No edema no cyanosis no ecchymosis of lower extremities No rash / no jaundice CRUZ symmetrical facies EKG SR 67 BNP 225.4 LFTnormal sputum cx penidng influezna pending Imaging Chest x-ray negative acute process Active issues and reason for admission Acute asthmatic exacerbation with mild hypoxia and improving leukocytosis -- ns x 1L -- Solu-Medrol DuoNeb's ativan smoker --prn nicotine patch Chronic issues known prior to admission, present on admission asthma persistent, dyslipidemia, anxiety, ADHD, bilateral shoulder repairs, right knee repair --cont venlafaxin/seroquel, hold adderall - Diet regular DVT prophylaxis lovenox ambulate Code full Disposition inpt Assessment and plan were discussed with patient family. Allergies Coded Allergies: No Known Allergies (Unverified , 01/20/16) PMH Social History Hx Alcohol Use: No Hx Substance Use: No Hx Tobacco Use: Yes Smoking Status: Current Every Day Smoker Exam Vital Signs Vital Sign - Last Date Time Temp Pulse Resp B/P Pulse Ox O2 Delivery O2 Flow Rate FiO2 05/25/16 18:14 88 18 157/86 96 Room Air 05/25/16 16:08 1.5 05/25/16 15:50 36.6 Lab and Diagnostics Result Diagram: 05/25/16 1610 05/25/16 1610 Wu العراقي MD May 25, 2016 18:36
[2016-05-25] MEDS ORDERED: Albuterol 2.5 mg/3 mL Inhalation Solution NEB PRN (19:10)
[2016-05-25 19:27] VITALS: BP 157/86; PULSE 88; RESP 18; O2SAT 96
[2016-05-25 19:27] LABS: APPEARANCE,URINE CLEAR (CLEAR,HAZY); COLOR,URINE YELLOW (YELLOW); OCCULT BLOOD,URINE SMALL (NEGATIVE); UROBILINOGEN,URINE NORMAL (NORMAL)
[2016-05-25 19:51] VITALS: BP 157/81; PULSE 91; RESP 20; O2SAT 94
[2016-05-25] MEDS: Albuterol-Ipratropium 3 mL Inhalation Solution NEB SCH (19:55)
[2016-05-25 19:56] VITALS: PULSE 97; RESP 20; O2SAT 95
[2016-05-25] MEDS: Bacitracin Ointment Packet TOPICAL PRN (22:27)
[2016-05-25] MEDS: 0.9% Sodium Chloride 1,000 ML IV SCH (22:31)
--- NOTE | 2016-05-25 22:57 | NUR ---
ADMIT; 56 yr old male admitted to room 1024 via dara from e.r. with c/o sob at appox. 1930. Left a.m.a. yesterday- states is not going to "do that again".
[2016-05-26] VITALS (10 sets, daily range): BP systolic 118–147; BP diastolic 68–85; PULSE 65–110; RESP 16–20; O2SAT 92–97
--- NOTE | 2016-05-26 00:07 | NUR ---
RESP; no c/o acute sob at this time. Sig other in at this time and brought him food.
[2016-05-26] MEDS: Albuterol-Ipratropium 3 mL Inhalation Solution NEB SCH ×6 (00:17→20:42)
[2016-05-26] MEDS: MethylprednisoLONE Sodium Succinate 62.5 mg/mL 2 mL Inj IVPUSH SCH ×4 (00:35→23:55)
--- NOTE | 2016-05-26 04:44 | NUR ---
REHABILITATION COORDINATOR; reports: sinus rhythm 76.
--- NOTE | 2016-05-26 04:47 | NUR ---
PSYCH; slept well during the night.
[2016-05-26] MEDS: Venlafaxine XR 37.5 mg ER24 Capsule PO SCH (08:37)
--- NOTE | 2016-05-26 11:54 | PCM.PNMED ---
Subjective Date of Service May 26, 2016 Subjective Patient seen at bedside, without acute complaints. With positive influenza, started Tamiflu. Denies chest pain but stated he went home and having more and more difficulty breathing but denies fever or chills. Has continued on steroids at home for about 4 days prior to admission. Did smoke marijuana but says he will quit now and do edible instead Exam Vital Signs Vital Sign - Last Date Time Temp Pulse Resp B/P Pulse Ox O2 Delivery O2 Flow Rate FiO2 05/26/16 08:07 65 20 93 Room Air 05/26/16 06:50 36.2 118/75 05/26/16 00:17 3.00 Intake and Output 05/25/16 05/25/16 05/26/16 Cumulative From/Thru 15:00 23:00 07:00 05/25/16 15:50 - 05/26/16 06:52 Intake Total 998 ml 998 ml Output Total 900 ml 900 ml Balance 98 ml 98 ml Intake Oral 650 ml 650 ml IV Total 348 ml 348 ml Output Urine Total 900 ml 900 ml # Bowel Movements 0 0 Exam NAD A and O x 3 mood affect WNL NC/AT no icterus no injected eyes EOMI PERRL /no pharyngeal lesions/ no oral lesions / hearing intact Supple neck bilateral wheeze bases equal chest rise / no accessory muscle use / speaks in full sentences / no rrw RRR S1 S2 / no mrg / 2+ radial pulses Soft nt nd + BS no hepatosplenomegaly No edema no cyanosis no ecchymosis of lower extremities No rash / no jaundice CRUZ symmetrical facies IVs and Medications Medications Reviewed: Medications were reviewed in detail Lab and Diagnostics Result Diagram: 05/25/16 1610 05/25/16 1610 Assessment & Plan Acute influenza likely worsening Acute asthmatic exacerbation with mild hypoxia and improving leukocytosis -- ns x 1L -- Solu-Medrol DuoNeb's ativan -- The Tamiflu days -- Pulse ox for pupils that are smooth to 92% smoker --prn nicotine patch -- Executed smoking counseling Chronic issues known prior to admission, present on admission asthma persistent, dyslipidemia, anxiety, ADHD, bilateral shoulder repairs, right knee repair --cont venlafaxin/seroquel, hold adderall Diet regular DVT prophylaxis lovenox ambulate Code full Disposition observation Pain Evaluation: Adequate Pain Control GI Prophylaxis: Proton Pump Inhibitor VTE Prophylaxis: Sub-Q Enoxaparin VTE Mechanical Devices: Intermittant Pneumatic CD Resuscitation Status: CPR: Attempt Resuscitation Time spent 35 minutes spent with evaluation and management Attending Statement Disposition: Patient likely discharge in 1-2 days Juan Jose Hyatt DO May 26, 2016 11:54
--- NOTE | 2016-05-26 15:18 | NUR ---
RESP/ANXIETY Patient reports SOB has improved, still SOB with activity (ambulating into bathroom) but reports decreased from days prior. O2 sats stable on RA. Receiving neb treatments scheduled, and IV steroids. Patient reports feeling anxious (mind racing) related to new diagnosis of influenza A and MRSA. Requesting anti-anixety medication, also states it helps with his breathing. Care continues
[2016-05-26] MEDS: 0.9% Sodium Chloride 1,000 ML IV SCH ×2 (16:50→21:46)
--- NOTE | 2016-05-26 16:55 | NUR ---
Social Work Note: Screen Note Data& Assessment: EMR reviewed. Patient is a 56 year old male admitted on 05/25/16 for Asthma Exacerbation. Pt has [employer]. for insurance coverage and sees Tyrel Munguia MD for primary care. Pt lives in [place] and is independent at baseline. Pt is currently SBA in her room. No discharge needs identified at this time. SW to continue to follow if any needs arise. Plan: Anticipated discharge home via POV when medically ready. No discharge needs identified at this time. SW to continue to follow if any needs arise. Mala Vergara, RUSS, ACM
[2016-05-26] MEDS: Bacitracin Ointment Packet TOPICAL PRN (20:39)
[2016-05-27] VITALS (9 sets, daily range): BP systolic 120–149; BP diastolic 71–85; PULSE 75–111; RESP 16–20; O2SAT 93–98
[2016-05-27] MEDS: Albuterol-Ipratropium 3 mL Inhalation Solution NEB SCH ×7 (00:15→23:59)
--- NOTE | 2016-05-27 02:02 | NUR ---
PSYCH; pt c/o anxiety and general malaise. Requested ativan and given. Pt has appeared to sleep very well during the night.
[2016-05-27] MEDS: 0.9% Sodium Chloride 1,000 ML IV SCH ×2 (04:33→17:56)
[2016-05-27] MEDS: Venlafaxine XR 37.5 mg ER24 Capsule PO SCH (08:37)
[2016-05-27] MEDS: MethylprednisoLONE Sodium Succinate 62.5 mg/mL 2 mL Inj IVPUSH SCH ×2 (08:37→16:17)
--- NOTE | 2016-05-27 18:06 | NUR ---
Anxiety Patient reported moderate anxiety. 0.5 mg of lorazepam given. Denies nausea and pain this shift. Patient repositions self for comfort. Call light and tray table within reach. Will continue to monitor patient hourly.
--- NOTE | 2016-05-27 19:09 | PCM.PNMED ---
Subjective Date of Service May 27, 2016 Subjective says breathing improving but still not back to baseline Exam Vital Signs Vital Sign - Last Date Time Temp Pulse Resp B/P Pulse Ox O2 Delivery O2 Flow Rate FiO2 05/27/16 16:52 75 20 95 Room Air 05/27/16 14:47 36.3 149/85 05/26/16 00:17 3.00 Intake and Output 05/26/16 05/26/16 05/27/16 Cumulative From/Thru 15:00 23:00 07:00 05/25/16 15:50 - 05/27/16 05:53 Intake Total 2733 ml 1952 ml 5683 ml Output Total 1100 ml 850 ml 2850 ml Balance 1633 ml 1102 ml 2833 ml Intake Oral 2032 ml 1200 ml 3882 ml IV Total 701 ml 752 ml 1801 ml Output Urine Total 1100 ml 850 ml 2850 ml # Voids 4 4 # Bowel Movements 0 0 General: Alert, Cooperative, No Acute Distress Head: Normal Eyes: Scleral Anicteric Nose: Mucous Membr Moist/[place] Mouth: Mucous Membr Moist/[place] Chest & Lungs: Chest Wall Normal, Inspiratory wheezes (bilat), Expiratory wheezes (bilat) Cardiovascular: Regular Rate/Rhythm Abdomen: Non-tender, Non-distended, Normoactive bowel tones, Soft Extremities: No cyanosis/clubbing/edma bilat Neurological: Grossly Neurologically Intact, Normal Speech IVs and Medications Medications Reviewed: Medications were reviewed in detail Lab and Diagnostics Result Diagram: 05/25/16 1610 05/25/16 1610 Assessment & Plan 56-year-old male with history of asthma who had left AMA one day prior to this admission represents with acute breathing difficulty and asthma exacerbation # Acute influenza likely worsening Acute asthmatic exacerbation with mild hypoxia and improving leukocytosis. present on admission - c/w Tamiflu (started on 05/26) 5 days # Acute asthma exacerbation, likely exacerbated by underlying Influenza A. poa. ongoing - continued moderate wheezing on exam - continue with IV Solu-Medrol and consider changing to PO prednisone soon - c/w nebs # Tobacco use. - prn nicotine patch # chronic Anxiety and ADHD. stable. - Cont venlafaxine/Seroquel, - Adderall on hold Dispo: 1-3 more days pending improved respiratory status GI Prophylaxis: Proton Pump Inhibitor VTE Prophylaxis: Sub-Q Enoxaparin VTE Mechanical Devices: Intermittant Pneumatic CD Resuscitation Status: CPR: Attempt Resuscitation Time spent 25 min Corey Escamilla May 27, 2016 19:09
[2016-05-27] MEDS: LORazepam 1 mg Tablet PO PRN (20:27)
[2016-05-28] VITALS (10 sets, daily range): BP systolic 120–153; BP diastolic 70–83; PULSE 18–105; RESP 18–20; O2SAT 93–99
[2016-05-28] MEDS: MethylprednisoLONE Sodium Succinate 62.5 mg/mL 2 mL Inj IVPUSH SCH ×2 (00:59→17:31)
--- NOTE | 2016-05-28 01:55 | NUR ---
Anxiety Pt now on PO lorazepam 1mg rather than IV. Pt millie well and is sleeping good. Pt reports significant decrease in anxiety. Pt feels much better which also contributes to reduction of anxiety.
[2016-05-28] MEDS: Albuterol-Ipratropium 3 mL Inhalation Solution NEB SCH ×6 (04:33→23:54)
[2016-05-28 07:11] LABS: Mean Corpuscular Hemoglobin 29.3 pg (27.0-35.0); Mean Corpuscular Volume 88.2 fL (81-100)
[2016-05-28 07:23] LABS: Magnesium 2.1 mg/dL (1.6-2.6)
[2016-05-28] MEDS: Venlafaxine XR 37.5 mg ER24 Capsule PO SCH (08:51)
[2016-05-28] MEDS: LORazepam 1 mg Tablet PO PRN ×3 (08:56→22:47)
--- NOTE | 2016-05-28 12:58 | NUR ---
Social Work Note: Readiness for Discharge Data: EMR reviewed. Pt is on day 3 of hospitalization for Asthma Exacerbation. Pt is not medically stable, anticipate 1 more day. Pt's wheezing continues to improve. Per RN notes, pt is on room air. Pt is independent at baseline. Pt to discharge home via POV when medically stable.No discharge needs identified at this time. SW to continue to follow if any needs arise. Assessment: Pt who is independent at base. Plan: Anticipated discharge home via POV when medically ready. No discharge needs identified at this time. SW to continue to follow if any needs arise. Katerina Desai MSW
[2016-05-28] MEDS: 0.9% Sodium Chloride 1,000 ML IV SCH (13:37)
--- NOTE | 2016-05-28 13:57 | NUR ---
Sore throat Pt c/o having a sore throat this afternoon. Sent Cook page to hospitalist to request order for Cepachol lozenges. Care continues.
[2016-05-28] MEDS ORDERED: Lidocaine 1%-Epi 1:100,000 20 mL Inj ONE (15:30)
[2016-05-28] MEDS: Benzocaine-Menthol Lozenge 2/Pkg PO PRN (16:02)
--- NOTE | 2016-05-28 19:25 | PCM.PNMED ---
Subjective Date of Service May 28, 2016 Subjective The patient is feeling a little bit better today and has no new complaints. However, he still having some respiratory difficulties with cough, wheezing and shortness of breath. Exam Vital Signs Vital Sign - Last Date Time Temp Pulse Resp B/P Pulse Ox O2 Delivery O2 Flow Rate FiO2 05/28/16 16:44 78 18 94 Room Air 05/28/16 14:46 36.8 128/71 05/26/16 00:17 3.00 Intake and Output 05/27/16 05/27/16 05/28/16 Cumulative From/Thru 15:00 23:00 07:00 05/25/16 15:50 - 05/28/16 06:30 Intake Total 3110 ml 866 ml 9659 ml Output Total 1300 ml 1125 ml 5275 ml Balance 1810 ml -259 ml 4384 ml Intake Oral 2240 ml 866 ml 6988 ml IV Total 870 ml 2671 ml Output Urine Total 1300 ml 1125 ml 5275 ml # Voids 4 # Bowel Movements 0 0 0 Exam General: Patient is in no apparent distress at present time. He is lying in bed with head elevated approximately 45. HEENT: Head is atraumatic and normocephalic. Eyes: Pupils are equally round and reactive to light and accommodation. Extraocular muscles are intact. Sclera are white, anicteric. Subconjunctival mucosa is pink. Ears and nose are unremarkable. Oropharynx: There is no mucosal lesions, there is no thrush, there is no pharyngitis. Neck: Is supple, there are no nodes, or masses or tenderness. Chest: Is significant for bilateral scattered wheezing mostly expiratory. There are bilateral diffuse scattered crackles. There are no rhonchi and no rubs. Heart: Rate, rhythm is regular. There is no new murmur, rub or gallop. Abdomen: Good bowel sounds are present. Abdomen is soft, nontender, no organomegaly or masses were appreciated. Extremities: Are symmetrical and well perfused. There is no edema, there is no cellulitis, no rash. Neurologic: There are no focal neurological deficits. Cranial nerves II through XII are intact. There are no sensory or motor deficits. Psychiatric: Patients mood is calm and shows no sign of agitation. Genital: Deferred Rectal: Deferred Lab and Diagnostics Result Diagram: 05/28/1640 05/28/16 0640 Microbiology INFLUENZA A PCR Final 05/26/16-0812 Organism 1 INFLUENZA A H3 INFLUENZA A PCR Equivocal TIME CALLED: 809 DATE CALLED: 05/26/16 FLOOR/DOCTOR: JOHANNA/MELANY Ahn. CALLED BY: GEOVANNA The performance of the film array RVP has not been established in individuals who have received the influenza vaccine. Recent administration of a nasal influenza vaccine may cause false positive results for Influenza A and/or Influenza B. This result could occcur when the titer of the virus in the specimen is low and not detected by the subtyping assays. This could also indicate the presence of a novel Influenza A strain. In both cases, the sample in question should be recollected and the testing repeated. Name: NIR RAMOS Age/Sex: 56/M Attend Dr: Quique العراقي MD Acct: [id number] Unit: [id number] Status: ADM IN Location: [place] [address]-1 Re05/25/16 Disch: Specimen: [id number] Collected: 05/25/16-UNK Status: COMP Req#: [id number] Received: 05/26/16 Source: NOSE Sp Desc : Subm Dr: Wu العراقي MD Ordered: JESUS MRSA PCR Comments: Collected by Nurse/Unit? Y/N Y Procedure Result Verified Site Microbiology JESUS MRSA PCR Final 05/26/16-0900 MRSA BY PCR POSITIVE REFERENCE INTERVAL NEGATIVE Organism 1 MRSA POSITIVE BY PCR X-Rays, CTs and MRIs PROCEDURE: X-RAY CHEST ONE VIEW, PORTABLE ([id number]) INDICATIONS: shortness of breath COMPARISON: [facility], CR, XR CHEST 2VW, 05/24/2016, 7:46. FINDINGS: Surgical changes and devices: None. Lungs and pleura: No pleural effusions or pneumothorax. Lungs are clear. Mediastinum: Mediastinal contours are normal. Heart size is normal. Bones and chest wall: No suspicious bony abnormalities. Soft tissues appear unremarkable. IMPRESSION: No acute cardiopulmonary disease. Dictated by: Jay Martinez M.D. on 05/25/2016 at 17:28 Approved by: Jay Martinez M.D. on 05/25/2016 at 17:30 Assessment & Plan The patient is a 56-year-old male with history of asthma, who had left AMA one day prior to this admission, who presented to [facility] emergency room with acute breathing difficulty and asthma exacerbation the patient was admitted to the hospital service for further evaluation and treatment. # Acute Influenza A with Acute asthmatic exacerbation with mild hypoxia and improving leukocytosis. present on admission - We will continue with Tamiflu (started on 05/26) 5 days # Acute asthma exacerbation, likely exacerbated by underlying Influenza A. Present at the time of admission, ongoing. - Patient has continued moderate wheezing on exam which he states is improving. - We will continue with IV Solu-Medrol, however decreased dose to 60 mg IV every 8 hours. - We will consider changing to PO prednisone soon depending on how the patient tolerates a Solu-Medrol taper. - We will continue with SVN treatments. # Tobacco use. - prn nicotine patch - We will consult patient on quitting smoking # The patient has chronic Anxiety and ADHD, which is stable. - Cont venlafaxine/Seroquel, - Adderall on hold Dispo: 1-3 more days depending on improvement in respiratory status. Pain Evaluation: Adequate Pain Control GI Prophylaxis: H2 handy VTE Prophylaxis: Sub-Q Enoxaparin VTE Mechanical Devices: Intermittant Pneumatic CD Resuscitation Status: CPR: Attempt Resuscitation MickiBj MD May 28, 2016 19:24
[2016-05-29] MEDS: MethylprednisoLONE Sodium Succinate 62.5 mg/mL 2 mL Inj IVPUSH SCH ×3 (00:59→17:07)
[2016-05-29] MEDS: Nystatin 100,000 Unit/mL 5 mL Suspension PO SCH ×4 (00:59→18:03)
[2016-05-29] MEDS: Benzocaine-Menthol Lozenge 2/Pkg PO PRN (00:59)
[2016-05-29] MEDS: 0.9% Sodium Chloride 1,000 ML IV SCH ×2 (03:06→16:22)
[2016-05-29 03:57] VITALS: PULSE 68; RESP 18; O2SAT 98
[2016-05-29] MEDS: Albuterol-Ipratropium 3 mL Inhalation Solution NEB SCH ×5 (03:57→20:30)
[2016-05-29 04:26] VITALS: BP 105/68; PULSE 94; RESP 20; O2SAT 95
--- NOTE | 2016-05-29 04:46 | NUR ---
Pain Contact and droplet precautions for FLU and MRSA. Pt reports pain related to oral thrush/sore throat and on back due to kidney stones- given APAP. He is started on nystatin and cepacol lozenges. Requests ice cream several times this shift. Significant other in room until 0100. Given nebulizer breathing tx by RT. No SOB, no chest pain. Care continues
[2016-05-29 07:17] LABS: BASOPHILS % (AUTO) 0.2 % (0-3); EOSINOPHILS % (AUTO) 0 % (0-5); MONOCYTES % (AUTO) 3.1 % (4-12); Mean Corpuscular Hemoglobin 29.8 pg (27.0-35.0); Mean Corpuscular Volume 87.8 fL (81-100); NEUTROPHILS % (AUTO) 87.9 % (40-74); Platelet Count 230 bil/L (150-400)
[2016-05-29 08:34] VITALS: PULSE 78; RESP 20; O2SAT 94
[2016-05-29] MEDS: Venlafaxine XR 37.5 mg ER24 Capsule PO SCH (09:09)
--- NOTE | 2016-05-29 09:31 | NUR ---
SOB Pt states he is feeling better, but still has frequent SOB. Also states he has some dizziness after trying to breathe deeply. Pt is comfortable on room air. No complaints of pain. Sore throat from 05/28 has resolved. Care continues
--- NOTE | 2016-05-29 11:19 | NUR ---
Social Work-readiness for discharge: Data:EMR Reviewed. PT is on day 4 of hospitalization for asthma per H&P. Pt is not medically stable anticipate tomorrow. SW followed up with pt at bedside, SW role explained. Pt confirms he plans to return home at discharge and his friend will provide transport home. SW discussed DPOA/ advanced directive, pt confirms he has not completed this and is not interested in any information at this time. Per RN notes, pt has bee up independent in his room. No anticipated discharge needs. SW will continue to follow if needs arise. Assessment:Pt who is independent at baseline. Plan:Pt to discharge home when medically stable via POV. No anticipated discharge needs. SW will continue to follow if needs arise. ENMANUEL Gutierrez
[2016-05-29 12:39] VITALS: PULSE 75; RESP 20; O2SAT 94
[2016-05-29] MEDS: LORazepam 1 mg Tablet PO PRN (13:09)
[2016-05-29 15:40] VITALS: BP 132/81; PULSE 98; RESP 20; O2SAT 96
--- NOTE | 2016-05-29 17:15 | NUR ---
Pain Pt resting in bed throughout the shift. When asked about pain he denies any pain, yet he reports intermittent body aches with occasional sharp pains in his back in his kidneys. States he has had renal calculi in the past and wonders if the prednisone is causing his kidney stones to move around. Offered pt PO Tylenol but he declined, stating it did not really help. Asked pt if there is another PO medication that has given good relief for general body aches, but he did not know of any. He did state the IV morphine he was given for kidney stones in the past helped. Explained to pt that observation of him and his description of his symptoms did not warrant giving him IVP Morphine at this time. Pt understands and agreed. Advised pt to left staff know if his back or other body pain increases. Care continues.
[2016-05-29 21:00] VITALS: BP 146/93; PULSE 88; RESP 18; O2SAT 96
--- NOTE | 2016-05-29 22:31 | PCM.PNMED ---
Subjective Date of Service May 29, 2016 Subjective She is beginning to feel a little bit better. He is breathing better and coughing less. He still has considerable wheezing with inspiration and expiration especially coughing. Exam Vital Signs Vital Sign - Last Date Time Temp Pulse Resp B/P Pulse Ox O2 Delivery O2 Flow Rate FiO2 05/29/16 21:00 36.4 88 18 146/93 96 Room Air 05/26/16 00:17 3.00 Intake and Output 05/28/16 05/28/16 05/29/16 Cumulative From/Thru 15:00 23:00 07:00 05/25/16 15:50 - 05/29/16 06:39 Intake Total 1196 ml 1720 ml 30652 ml Output Total 1100 ml 900 ml 7275 ml Balance 96 ml 820 ml 5300 ml Intake Oral 1196 ml 1720 ml 9904 ml IV Total 2671 ml Output Urine Total 1100 ml 900 ml 7275 ml # Voids 4 # Bowel Movements 0 Exam General: Patient appears more comfortable today. He is in less respiratory distress. Patient has had regular bowel movements. HEENT: Head is atraumatic and normocephalic. Eyes: Pupils are equally round and reactive to light and accommodation. Extraocular muscles are intact. Sclera are white, anicteric. Subconjunctival mucosa is pink. Ears and nose are unremarkable. Oropharynx: There is no mucosal lesions, there is no thrush, there is no pharyngitis. Neck: Is supple, there are no nodes, or masses or tenderness. Chest: Is significantly clearer today. There are still is inspiratory and expiratory wheezing scattered throughout. There are no rhonchi and no rubs. Heart: Rate, rhythm is regular. There is no new murmur, rub or gallop. Abdomen: Good bowel sounds are present. Abdomen is soft, nontender, no organomegaly or masses were appreciated. Extremities: Are symmetrical and well perfused. There is no edema, there is no cellulitis, no rash. Neurologic: There are no focal neurological deficits. Cranial nerves II through XII are intact. There are no sensory or motor deficits. Psychiatric: Patients mood is calm and shows no sign of agitation. Genital: Deferred Rectal: Deferred Lab and Diagnostics Result Diagram: 05/29/16 0638 05/29/16 0638 Microbiology INFLUENZA A PCR Final 05/26/16-0812 Organism 1 INFLUENZA A H3 INFLUENZA A PCR Equivocal TIME CALLED: 08 DATE CALLED: 05/26/16 FLOOR/DOCTOR: JOHANNA/MELANY Ahn. CALLED BY: GEOVANNA The performance of the film array RVP has not been established in individuals who have received the influenza vaccine. Recent administration of a nasal influenza vaccine may cause false positive results for Influenza A and/or Influenza B. This result could occcur when the titer of the virus in the specimen is low and not detected by the subtyping assays. This could also indicate the presence of a novel Influenza A strain. In both cases, the sample in question should be recollected and the testing repeated. Name: NIR RAMOS Age/Sex: 56/M Attend Dr: Quique العراقي MD Acct: [id number] Unit: [id number] Status: ADM IN Location: [facility] [place] 1024-1 Re05/25/16 Disch: Specimen: [id number] Collected: 05/25/16-UNK Status: COMP Req#: [id number] Received: 05/26/16 Source: NOSE Sp Desc : Subm Dr: Wu العراقي MD Ordered: JESUS MRSA PCR Comments: Collected by Nurse/Unit? Y/N Y Procedure Result Verified Site Microbiology JESUS MRSA PCR Final 05/26/16-0900 MRSA BY PCR POSITIVE REFERENCE INTERVAL NEGATIVE Organism 1 MRSA POSITIVE BY PCR X-Rays, CTs and MRIs PROCEDURE: X-RAY CHEST ONE VIEW, PORTABLE ([id number]) INDICATIONS: shortness of breath COMPARISON: [facility], CR, XR CHEST 2VW, 05/24/2016, 7:46. FINDINGS: Surgical changes and devices: None. Lungs and pleura: No pleural effusions or pneumothorax. Lungs are clear. Mediastinum: Mediastinal contours are normal. Heart size is normal. Bones and chest wall: No suspicious bony abnormalities. Soft tissues appear unremarkable. IMPRESSION: No acute cardiopulmonary disease. Dictated by: Jay Martinez M.D. on 05/25/2016 at 17:28 Approved by: Jay Martinez M.D. on 05/25/2016 at 17:30 Assessment & Plan The patient is a 56-year-old male with history of asthma, who had left AMA one day prior to this admission, who presented to [facility] emergency room with acute breathing difficulty and asthma exacerbation the patient was admitted to the hospital service for further evaluation and treatment. # Acute Influenza A with Acute asthmatic exacerbation with mild hypoxia and improving leukocytosis. present on admission - We will continue with Tamiflu (started on 05/26) 5 days total. # Acute asthma exacerbation, likely exacerbated by underlying Influenza A. Present at the time of admission, ongoing slowly improving. - Patient has continued moderate wheezing on exam which he states is improving. - We will discontinue IV Solu-Medrol and start by mouth prednisone in a.m. - We will continue with SVN treatments. # Tobacco use. - prn nicotine patch - We will consult patient on quitting smoking # The patient has chronic Anxiety and ADHD, which is stable. - Cont venlafaxine/Seroquel, - Adderall on hold Dispo: 1-2 more days depending on improvement in respiratory status. Pain Evaluation: Adequate Pain Control GI Prophylaxis: H2 handy VTE Prophylaxis: Sub-Q Enoxaparin VTE Mechanical Devices: Intermittant Pneumatic CD Resuscitation Status: CPR: Attempt Resuscitation Bj Sweet MD May 29, 2016 22:31
[2016-05-30] VITALS (7 sets, daily range): BP systolic 132–158; BP diastolic 82–90; PULSE 66–81; RESP 16; O2SAT 97–99
[2016-05-30] MEDS: Albuterol-Ipratropium 3 mL Inhalation Solution NEB SCH ×6 (00:10→20:04)
[2016-05-30] MEDS: Nystatin 100,000 Unit/mL 5 mL Suspension PO SCH ×5 (00:13→21:31)
[2016-05-30] MEDS: Benzocaine-Menthol Lozenge 2/Pkg PO PRN (00:14)
--- NOTE | 2016-05-30 02:35 | NUR ---
Patient education Informed patient about importance of oral hygiene to assist in overcoming oral thrush. Encouraged deep breathing and coughing every hour in order to maintain optimal lung function. Refused SCDs Patient cooperative with care. Denies CP, SOB, and abdominal discomfort at this time. Will continue to monitor.
[2016-05-30] MEDS: 0.9% Sodium Chloride 1,000 ML IV SCH ×2 (05:46→19:06)
[2016-05-30 07:07] LABS: Mean Corpuscular Hemoglobin 29.8 pg (27.0-35.0); Mean Corpuscular Volume 88.3 fL (81-100); Platelet Count 251 bil/L (150-400)
[2016-05-30 07:15] LABS: Magnesium 2.1 mg/dL (1.6-2.6)
[2016-05-30 08:06] LABS: BASOPHILS % (AUTO) 1 % (0-3); EOSINOPHILS % (AUTO) 0 % (0-5); MONOCYTES % (AUTO) 6 % (4-12); NEUTROPHILS % (AUTO) 78 % (40-74)
[2016-05-30] MEDS: predniSONE 20 mg Tablet PO SCH (08:51)
[2016-05-30] MEDS: Venlafaxine XR 37.5 mg ER24 Capsule PO SCH (08:52)
--- NOTE | 2016-05-30 14:31 | NUR ---
BILATERAL FLANK PAIN P: Patient complained of bilateral 'kidney pain', 8/10 on left side and 6/10 on right side. States he has had kidney stones prior and thinks it's a flare up of them. I: Medicated with morphine 2mg IV which patient states is effective in lowering pain. MD notified. E: MD ordered a renal ultrasound. Pending test.
--- NOTE | 2016-05-30 15:33 | DRSVH ---
PROCEDURE: US RENAL SONOGRAM INDICATIONS: POSSIBLE HYDRONEPHROSIS OR STONE TECHNIQUE: Real-time scanning was performed of the kidneys and bladder, with image documentation. COMPARISON: None. FINDINGS: Kidneys: Kidneys are normal in size. Right kidney measures 10.8 cm long; left kidney measures 10.8 cm long. Right renal cortical thickness is 1.2 cm; left renal cortical thickness is 1.3 cm. Renal c ortical echotexture is normal. 8mm nonobstructing right renal calcification. No hydronephrosis.. N o suspicious solid mass lesions. Bladder: Pre-void bladder volume is 213 mL. Post-void residual is 42 mL. Pre-void images demonstra te no intraluminal masses or stones. On pre-void images, bilateral ureteral jets are noted with colo r Doppler interrogation. (Of note, ureteral jets may not be detectable in up to 25% of cases due to insufficient differences in specific gravity between ureteral and bladder urine). Miscellaneous: No free pelvic fluid. IMPRESSION: 1. Nonobstructing right renal calcification otherwise normal kidneys. 2. 42 cc PVR. Dictated by: Michel Chino RRA Interpreted: Davida Loaiza MD on 05/30/2016 at 15:32 Transcribed by: KAYLEE on 05/30/2016 at 15:33 Approved by: Davida Loaiza MD, PhD on 05/30/2016 at 16:35
[2016-05-30] MEDS: LORazepam 1 mg Tablet PO PRN (22:09)
--- NOTE | 2016-05-30 22:22 | PCM.PNMED ---
Subjective Date of Service May 30, 2016 Subjective The patient complained of severe back pain last night and thought he was passing a kidney stone. Apparently he is passed kidney stones in the past and this pain was very similar. He has required periodic IV morphine throughout the evening and couple of doses today to control his back pain. The patient still complains of some shortness of breath wheezing and cough. However, he is feeling better than yesterday. Exam Vital Signs Vital Sign - Last Date Time Temp Pulse Resp B/P Pulse Ox O2 Delivery O2 Flow Rate FiO2 05/30/16 20:13 36.4 69 16 158/90 97 Room Air 05/26/16 00:17 3.00 Intake and Output 05/29/16 05/29/16 05/30/16 Cumulative From/Thru 15:00 23:00 07:00 05/25/16 15:50 - 05/30/16 05:44 Intake Total 1464 ml 556 ml 91066 ml Output Total 400 ml 940 ml 8615 ml Balance 1064 ml -384 ml 5980 ml Intake Oral 1464 ml 556 ml 97352 ml IV Total 2671 ml Output Urine Total 400 ml 940 ml 8615 ml # Voids 2 6 # Bowel Movements 1 0 1 Exam General: Patient is in no apparent distress at present time laying supine in bed with his head elevated at approximately 30. HEENT: Head is atraumatic and normocephalic. Eyes: Pupils are equally round and reactive to light and accommodation. Extraocular muscles are intact. Sclera are white, anicteric. Subconjunctival mucosa is pink. Ears and nose are unremarkable. Oropharynx: There is no mucosal lesions, there is no thrush, there is no pharyngitis. Neck: Is supple, there are no nodes, or masses or tenderness. Chest: There are still is inspiratory and expiratory wheezing scattered throughout. There are no rhonchi and no rubs. Heart: Rate, rhythm is regular. There is no new murmur, rub or gallop. Abdomen: Good bowel sounds are present. Abdomen is soft, nontender, no organomegaly or masses were appreciated. Extremities: Are symmetrical and well perfused. There is no edema, there is no cellulitis, no rash. Neurologic: There are no focal neurological deficits. Cranial nerves II through XII are intact. There are no sensory or motor deficits. Psychiatric: Patients mood is calm and shows no sign of agitation. Genital: Deferred Rectal: Deferred Lab and Diagnostics Result Diagram: 05/30/1660605/30/16606 Microbiology INFLUENZA A PCR Final 05/26/16 Organism 1 INFLUENZA A H3 INFLUENZA A PCR Equivocal TIME CALLED: 809 DATE CALLED: 05/26/16 FLOOR/DOCTOR: JOHANNA/MELANY Lawson CALLED BY: GEOVANNA The performance of the film array RVP has not been established in individuals who have received the influenza vaccine. Recent administration of a nasal influenza vaccine may cause false positive results for Influenza A and/or Influenza B. This result could occcur when the titer of the virus in the specimen is low and not detected by the subtyping assays. This could also indicate the presence of a novel Influenza A strain. In both cases, the sample in question should be recollected and the testing repeated. Name: NIR RAMOS Age/Sex: 56/M Attend Dr: Quique العراقي MD Acct: [id number] Unit: [id number] Status: ADM IN Location: [place] [address] Re05/25/16 Disch: Specimen: [id number] Collected: 05/25/16-UNK Status: COMP Req#: [id number] Received: 05/26/16 Source: NOSE Sp Desc : Subm Dr: Wu العراقي MD Ordered: JESUS MRSA PCR Comments: Collected by Nurse/Unit? Y/N Y Procedure Result Verified Site Microbiology JESUS MRSA PCR Final 05/26/16-0900 MRSA BY PCR POSITIVE REFERENCE INTERVAL NEGATIVE Organism 1 MRSA POSITIVE BY PCR X-Rays, CTs and MRIs PROCEDURE: X-RAY CHEST ONE VIEW, PORTABLE ([id number]) INDICATIONS: shortness of breath COMPARISON: [facility], CR, XR CHEST 2VW, 05/24/2016, 7:46. FINDINGS: Surgical changes and devices: None. Lungs and pleura: No pleural effusions or pneumothorax. Lungs are clear. Mediastinum: Mediastinal contours are normal. Heart size is normal. Bones and chest wall: No suspicious bony abnormalities. Soft tissues appear unremarkable. IMPRESSION: No acute cardiopulmonary disease. Dictated by: Jay Martinez M.D. on 05/25/2016 at 17:28 Approved by: Jay Martinez M.D. on 05/25/2016 at 17:30 Assessment & Plan The patient is a 56-year-old male with history of asthma, who had left AMA one day prior to this admission, who presented to [facility] emergency room with acute breathing difficulty and asthma exacerbation the patient was admitted to the hospital service for further evaluation and treatment. # Acute Influenza A with Acute asthmatic exacerbation with mild hypoxia and improving leukocytosis. present on admission - We will continue with Tamiflu (started on 05/26) 5 days total. # Acute asthma exacerbation, likely exacerbated by underlying Influenza A. Present at the time of admission, ongoing slowly improving. - Patient has continued moderate wheezing on exam which he states is improving. - Patient has been weaned off oxygen and is now on room air - We have discontinued IV Solu-Medrol and started by mouth prednisone this a.m. - We will continue with SVN treatments. # Severe back pain - Renal ultrasound is negative for obstructing stone. There is a nonobstructing stone in the right kidney - Taper off IV morphine - Suspect pain is due to chronic degenerative arthritis of the spine and have encouraged the patient get out of bed and ambulate. He agrees to do so # Tobacco use. - prn nicotine patch - I have counseled the patient on quitting smoking and he agrees to do so. # The patient has chronic Anxiety and ADHD, which is stable. - Cont Venlafaxine and Seroquel, - Adderall on hold Disposition: Patient likely to be discharged and 1-2 more days depending on improvement in respiratory status. Pain Evaluation: Adequate Pain Control GI Prophylaxis: H2 handy VTE Prophylaxis: Sub-Q Enoxaparin VTE Mechanical Devices: Intermittant Pneumatic CD Resuscitation Status: CPR: Attempt Resuscitation Bj Sweet MD May 30, 2016 22:22
[2016-05-31] MEDS: Albuterol-Ipratropium 3 mL Inhalation Solution NEB SCH ×4 (00:30→12:45)
--- NOTE | 2016-05-31 02:04 | NUR ---
Flank/Back Pain Patient A&OX3 and pleasant this evening. Complains of 8/10 flank/back pain. Patient wonders if pain is from being so sedentary. Ambulation and activity have been encouraged. 650mg Tylenol PO was given, MD notified and a TO for a K-pad was written. Also received 1mg Ativan PO for restlessness and agitation. Upon reassessment patient is sleeping and appears comfortable. Will continue to monitor, and continue Q1 hour checks.
[2016-05-31 06:09] LABS: Mean Corpuscular Hemoglobin 29.9 pg (27.0-35.0); Mean Corpuscular Volume 88.7 fL (81-100); Platelet Count 213 bil/L (150-400)
[2016-05-31 06:16] VITALS: BP 129/84; PULSE 67; RESP 18; O2SAT 99
[2016-05-31 06:25] LABS: Magnesium 2.2 mg/dL (1.6-2.6)
[2016-05-31 06:26] LABS: BASOPHILS % (AUTO) 0 % (0-3); EOSINOPHILS % (AUTO) 0 % (0-5); MONOCYTES % (AUTO) 7 % (4-12); NEUTROPHILS % (AUTO) 65 % (40-74)
[2016-05-31] MEDS: 0.9% Sodium Chloride 1,000 ML IV SCH (08:26)
[2016-05-31 08:43] VITALS: PULSE 77; RESP 18; O2SAT 98
[2016-05-31] MEDS: Nystatin 100,000 Unit/mL 5 mL Suspension PO SCH ×2 (10:05→14:36)
[2016-05-31] MEDS: Venlafaxine XR 37.5 mg ER24 Capsule PO SCH (10:05)
[2016-05-31] MEDS: predniSONE 20 mg Tablet PO SCH (10:05)
[2016-05-31 12:46] VITALS: PULSE 77; RESP 18; O2SAT 98
[2016-05-31 13:12] VITALS: BP 132/84; PULSE 93; RESP 18; O2SAT 99
--- NOTE | 2016-05-31 13:24 | NUR ---
Called Frieda and got information needed to send with script. Faxed script, progress notes and neb treatments to [phone] Updated [employer]
--- NOTE | 2016-05-31 13:44 | PCM.DIMED ---
Discharge Instructions Date of Service May 31, 2016 Dates of Hospitalization May 25, 2016 at 18:43 Discharge Diagnosis Discharge Diagnosis Acute on Chronic respiratory Failure due to COPD/Asthma Diet Heart Healthy Activity No restrictions (Patient may return to usual activity gradually as tolerated.) Call your provider Fever or Chills, Shortness of breath, Bleeding, Chest pain, Vomitting, Excessive diarrhea, Weakness (unilateral) Patient Instructions Patient to QUIT smoking. Follow-up Provider: Tyrel Munguia MD Follow-up with PCP in: 1 week (Patient needs referral to a [employer]) Bj Sweet MD May 31, 2016 13:44
[2016-05-31] MEDS ORDERED: NYST1000 PO (13:54)
[2016-05-31] MEDS ORDERED: NICO1PAT5 TOPICAL (13:54)
[2016-05-31] MEDS ORDERED: ALBU2.5V4 NEB (13:54)
[2016-05-31] MEDS ORDERED: IPRA3AMP NEB (13:54)
[2016-05-31] MEDS ORDERED: PRD5T PO (13:54)
[2016-05-31] MEDS ORDERED: MONT10TA23 PO (13:54)
[2016-05-31] MEDS ORDERED: FAMO20T PO (13:54)
--- NOTE | 2016-05-31 14:41 | NUR ---
DISCHARGE Removed patient's saline lock IV, prior to d/c so patient could take a shower. Patient is independent with bathing, and all ADL's. Able to ambulate without losing breath. Reviewed all patient discharge instructions and new prescriptions with patient. Patient verbalized understanding. Packed all his belongings and called for a ride to be picked up. Addendum: 05/31/16 at 1506 by MELANY YOUNG RN Patient ambulated off unit with friend and left in personal vehicle.
--- NOTE | 2016-05-31 23:28 | PCM.DC.MED ---
Discharge Summary Date of Service May 31, 2016 Dates of Hospitalization Date of Hospital Admission May 25, 2016 at 18:43 Date of Discharge: May 31, 2016 Providers: Admitting Physician: Wu العراقي MD Primary Care Physician: Tyrel Munguia MD Attending Physician: Wu العراقي MD Diagnosis at Time of Discharge Diagnosis at Time of Discharge Acute on Chronic respiratory Failure due to COPD/Asthma Procedures XRay, CTs & MRIs PROCEDURE: X-RAY CHEST ONE VIEW, PORTABLE ([id number]) INDICATIONS: shortness of breath COMPARISON: [facility], CR, XR CHEST 2VW, 05/24/2016, 7:46. FINDINGS: Surgical changes and devices: None. Lungs and pleura: No pleural effusions or pneumothorax. Lungs are clear. Mediastinum: Mediastinal contours are normal. Heart size is normal. Bones and chest wall: No suspicious bony abnormalities. Soft tissues appear unremarkable. IMPRESSION: No acute cardiopulmonary disease. Dictated by: Jay Martinez M.D. on 05/25/2016 at 17:28 Approved by: Jay Martinez M.D. on 05/25/2016 at 17:30 Brief History Pt is a 56 y/o male w/ a hx of asthma, anxiety, everyday smoking, presenting to the ED c/o SOB with the onset on the day of admission. The patient was recently admitted May 22 and left AMA for a severe asthma exacerbation which was thought to be triggered by smoking. At that time his O2 sats were in the high 80s and did not rise above 92% with 3L supplemental oxygen and nebulizer treatments. He states he left AMA because he "felt weird" and "stunk" because he was not given a shower. He was diagnosed with asthma 5 years ago and has never required intubation. He has been taking prednisone for 3 days and using home inhalers as often as possible without relief. Pt denied fever, chills, change in smokers cough, N/V/D, or abdominal pain. The patient was admitted to the hospital service for further evaluation and treatment. Hospital Course The patient is a 56-year-old male with history of asthma, who had left AMA one day prior to this admission, who presented to [facility] emergency room with acute breathing difficulty and asthma exacerbation the patient was admitted to the hospital service for further evaluation and treatment. # Acute Influenza A with Acute asthmatic exacerbation with mild hypoxia and improving leukocytosis. present on admission - We will continue with Tamiflu (started on 05/26) 5 days total. Patient completed his Tamiflu course today. # Acute asthma exacerbation, likely exacerbated by underlying Influenza A. Present at the time of admission, ongoing slowly improving. - Patient has continued moderate wheezing on exam which he states is improving. - Patient has been weaned off oxygen and is now on room air - We have discontinued IV Solu-Medrol and started by mouth prednisone this a.m. continue long taper of prednisone at home - We will continue with SVN treatments at home. # Severe back pain improved with increased movement and heating pad to the back. - Renal ultrasound is negative for obstructing stone. There is a nonobstructing stone in the right kidney - Taper off IV morphine - Suspect pain is due to chronic degenerative arthritis of the spine and have encouraged the patient get out of bed and ambulate. He agrees to do so # Tobacco use. - prn nicotine patch - I have counseled the patient on quitting smoking and he agrees to do so. # The patient has chronic Anxiety and ADHD, which is stable. - Cont Venlafaxine and Seroquel, - Adderall on hold Disposition: Patient likely to be discharged home today. Exam Vital Signs (Last) Date Time Temp Pulse Resp B/P Pulse Ox O2 Delivery O2 Flow Rate FiO2 05/31/16 13:12 36.6 93 18 132/84 99 Room Air 05/26/16 00:17 3.00 Exam General: Patient is in no apparent distress at present time laying supine in bed with his head elevated at approximately 30. HEENT: Head is atraumatic and normocephalic. Eyes: Pupils are equally round and reactive to light and accommodation. Extraocular muscles are intact. Sclera are white, anicteric. Subconjunctival mucosa is pink. Ears and nose are unremarkable. Oropharynx: There is no mucosal lesions, there is no thrush, there is no pharyngitis. Neck: Is supple, there are no nodes, or masses or tenderness. Chest: The lung reynolds are much clearer today to auscultation there are there is a significant decrease in wheezing There are no rhonchi and no rubs. Heart: Rate, rhythm is regular. There is no new murmur, rub or gallop. Abdomen: Good bowel sounds are present. Abdomen is soft, nontender, no organomegaly or masses were appreciated. Extremities: Are symmetrical and well perfused. There is no edema, there is no cellulitis, no rash. Neurologic: There are no focal neurological deficits. Cranial nerves II through XII are intact. There are no sensory or motor deficits. Psychiatric: Patients mood is calm and shows no sign of agitation. Genital: Deferred Rectal: Deferred Test 05/25/16 16:10 05/25/16 19:01 05/30/16 06:07 05/31/16 05:30 Troponin T < 0.010ug/L (0.0-0.011) Pro-B-Type Natriuretic Peptide 225.4pg/mL (0-210) Procalcitonin 0.04ng/mL (0.00-0.08) Hold Quevedo Top Tube Received (Received) Urine Color Yellow (YELLOW) Urine Appearance Clear (CLEAR,HAZY) Urine pH 6.0 (5.0-8.0) Urine Specific [place] 1.025 (1.003-1.035) Urine Protein Negativemg/dL (NEG,TRACE) Urine Glucose (UA) Negativemg/dL (NEGATIVE) Urine Ketones Negativemg/dL (NEGATIVE) Urine Occult Blood Small (NEGATIVE) Urine Nitrite Negative (NEGATIVE) Urine Bilirubin Negative (NEGATIVE) Urine Urobilinogen Normalmg/dL (NORMAL) Urine Leukocyte Esterase Negative (NEGATIVE) Urine RBC 0-2/hpf (0-2) Urine WBC 0-5/hpf (0-5) Urine Epithelial Cells Occasional/hpf (NONE-MOD) Urine Crystals None seen (NONE SEEN) Urine Bacteria None/hpf (NONE-FEW) Urine Hyaline Casts None/lpf (NONE) Urine Granular Casts None seen (NONE SEEN) Urine Waxy Casts None seen (NONE SEEN) Urine Red Blood Cell Casts None seen (NONE SEEN) Urine White Blood Cell Casts None seen (NONE SEEN) Urine Mucus Present (None Seen) Urine Trichomonas None seen (NONE SEEN) Urine Yeast None (NONE SEEN) Urinalysis Comment None Urine Culture Reflexed Not indicated Myelocytes % 1% (0-0) White Blood Count 10.9th/mm3 (3.8-10.1) Red Blood Count 5.42mil/mm3 (4.40-5.80) Hemoglobin 16.2g/dL (13.8-17.2) Hematocrit 48.1% (41.0-50.0) Mean Corpuscular Volume 88.7fL (81-100) Mean Corpuscular Hemoglobin 29.9pg (27.0-35.0) Mean Corpuscular Hemoglobin Concent 33.7% (32.0-37.0) Red Cell Distribution Width 14.3% (12.3-15.4) Platelet Count 213bil/L (150-400) Neutrophils (%) (Auto) 65% (40-74) Lymphocytes (%) (Auto) 25% (14-46) Monocytes (%) (Auto) 7% (4-12) Eosinophils (%) (Auto) 0% (0-5) Basophils (%) (Auto) 0% (0-3) Band Neutrophils % 2% (1-5) Metamyelocytes % 1% (0-0) Sodium Level 136mEq/L (134-144) Potassium Level 4.7mEq/L (3.5-5.2) Chloride Level 98mEq/L (97-108) Carbon Dioxide Level 28mmol/L (18-29) Blood Urea Nitrogen 29mg/dL (6-24) Creatinine 0.99mg/dL (0.76-1.27) Estimat Glomerular Filtration Rate 83mL/min (>59) Glucose Level 97mg/dL (60-99) Calcium Level 9.1mg/dL (8.5-10.1) Magnesium Level 2.2mg/dL (1.6-2.6) Total Bilirubin 0.3mg/dL (0.0-1.2) Aspartate Amino Transf (AST/SGOT) 16U/L (0-50) Alanine Aminotransferase (ALT/SGPT) 21U/L (0-44) Alkaline Phosphatase 66U/L (25-150) Total Protein 5.9g/dL (6.4-8.4) Albumin 3.5g/dL (3.4-5.0) Microbiology Results INFLUENZA A PCR Final 05/26/16-811 Organism 1 INFLUENZA A H3 INFLUENZA A PCR Equivocal TIME CALLED: 809 DATE CALLED: 05/26/16 FLOOR/DOCTOR: JOHANNA/MELANY Lawson CALLED BY: GEOVANNA The performance of the film array RVP has not been established in individuals who have received the influenza vaccine. Recent administration of a nasal influenza vaccine may cause false positive results for Influenza A and/or Influenza B. This result could occcur when the titer of the virus in the specimen is low and not detected by the subtyping assays. This could also indicate the presence of a novel Influenza A strain. In both cases, the sample in question should be recollected and the testing repeated. Name: NIR RAMOS Age/Sex: 56/M Attend Dr: Quique العراقي MD Acct: [id number] Unit: [id number] Status: ADM IN Location: [place] [address] Re05/25/16 Disch: Specimen: [id number] Collected: 05/25/16-UNK Status: COMP Re#: [id number] Received: 05/26/16 Source: NOSE Sp Desc : Subm Dr: Wu العراقي MD Ordered: JESUS MRSA PCR Comments: Collected by Nurse/Unit? Y/N Y Procedure Result Verified Site Microbiology JESUS MRSA PCR Final 05/26/16-899 MRSA BY PCR POSITIVE REFERENCE INTERVAL NEGATIVE Organism 1 MRSA POSITIVE BY PCR Discharge Medications Discharge Medications Albuterol Sulfate (Ventolin HFA Inhaler) 200 Puff/18 Gm Inhaler 2 PUFFS INHALATION QID Prescribed by: LOUIS LI DO Atorvastatin Calcium (Atorvastatin Calcium) 80 Mg Tablet 80 MG PO HS (Reported) Dextroamphetamine/Amphetamine ER (Adderall XR) 20 Mg Capsule 40 MG PO QAM ( Reported) Famotidine (Pepcid) 20 Mg Tablet 20 MG PO BID Prescribed by: TERESA SHAW MD Ipratropium/Albuterol Sulfate (Iprat-Albut 0.5-3(2.5) mg/3 mL Inhalant Soln) 3 Ml Ampul.neb 3 ML NEB Q4 Prescribed by: TERESA SHAW MD Montelukast (Montelukast) 10 Mg Tablet 5 MG PO HS Prescribed by: TERESA SHAW MD Nystatin (Nystatin) 100,000 Unit/1 Ml Oral.susp 500,000 UNIT PO PCHS Prescribed by: TERESA SHAW MD Quetiapine Fumarate (Quetiapine Fumarate) 300 Mg Tablet 300 MG PO DAILY ( Reported) Venlafaxine ER (Venlafaxine ER) 37.5 Mg Cap.er.24h 37.5 MG PO DAILY (Reported) As needed Albuterol Neb Soln (Albuterol Neb Soln) 2.5 Mg/3 Ml Vial.neb 2.5 MG NEB Q2H PRN PRN Dyspnea Prescribed by: TERESA SHAW MD Gabapentin (Gabapentin) 600 Mg Tablet 600 MG PO BID PRN PRN For Pain (Reported) Nicotine 14 mg/24 hr Patch (Nicotine 14 mg/24 hr Patch) 1 Each Patch.td24 1 PATCH TOPICAL DAILY PRN PRN For Tobacco Withdrawal Prescribed by: TERESA SHAW MD Prednisone (PredniSONE) 5 Mg Tab 5 MG PO DIRECTED PRN PRN AD Please take 6 tablets for three days, then take 4 tablets for three days, then take 2 tablets for three days, then take 1 tablet for four days and then stop. Prescribed by: TERESA SHAW MD Followup Plan Disposition: Patient is being discharged home. Discharge Diet: Heart Healthy Discharge Activity: No restrictions (Patient may return to usual activity gradually as tolerated.) Patient Instructions Patient to QUIT smoking. Follow-up Provider: Tyrel Munguia MD Follow-up with PCP in: 1 week (Patient needs referral to a [employer]) Time spent Time spent on discharging this patient was greater than 35 minutes, over half of which was involved in counseling and coordination of care. Bj Shaw MD May 31, 2016 23:28
== END 2016-05-31 15:01 | disposition home or self-care (01) | DRG 141 ==
LOC: SED 15:43 → OBSVTOIN 18:43 → INTOOBSV 18:43 → OSC 18:43
PROVIDERS: ADMIT Urology; ATTEND Urology
DX: J45.901 Unspecified asthma with (acute) exacerbation (principal); J96.21 Acute and chronic respiratory failure with hypoxia; B97.89 Other viral agents as the cause of diseases classified elsewhere; F41.9 Anxiety disorder, unspecified; J10.1 Influenza due to other identified influenza virus with other respiratory manifestations; F17.210 Nicotine dependence, cigarettes, uncomplicated; E78.5 Hyperlipidemia, unspecified; F90.9 Attention-deficit hyperactivity disorder, unspecified type